=== PATIENT | female | born 1970 ===

== ENCOUNTER → 2020-11-26 10:01 | Outpatient (BNVA) | payer MEDICAID, SELFPAY | PROVIDERS: PCP Internal Medicine Geriatric Medicine; Visit Provider Surgery | DX: K64.4 Residual hemorrhoidal skin tags (principal); K64.8 Other hemorrhoids | CPT/HCPCS: 46600; 99202 ==

== ENCOUNTER 2020-12-25 07:01 | Day surgery (SDC) | payer MEDICAID, SELFPAY ==
[2020-12-18 15:31] VITALS: BMI 42.6
--- NOTE | 2020-12-23 13:32 | HO.ANESPROP2 ---
Documented by User: Ryann Tse 12/23/20 13:33 HPI - Anesthesia Eval Consult details Narrative: 50yo F for EUA & Hemorrhoidectomy, Poss Fistulotomy, Poss Seton Placement PMFSH Active Problems Active Problems: All Active Problems (Updated 12/18/20 @ 15:20 by Alyce Smiley) Anal fistula (Acute) Internal and external hemorrhoids without complication (Acute) Morbid obesity (Acute) Arthritis (Acute) Past Medical History Medical History (Updated 12/18/20 @ 15:20 by Alyce Smiley) Anal fistula Arthritis GERD (gastroesophageal reflux disease) Internal and external hemorrhoids without complication Iron deficiency anemia Morbid obesity Surgical History Surgical History (Updated 12/18/20 @ 15:23 by Alyce Smiley) H/O bariatric surgery History of appendectomy History of cholecystectomy History of esophagogastroduodenoscopy (EGD) History of tonsillectomy Hx of colonoscopy Hx of prior ablation treatment Social History Social History Are you a primary nurse healthcare manager to a significant other at home: No Do you presently have visiting nurse or other home services: No Alcohol intake: current Alcohol intake frequency: holidays/special occasions only Smoking Status: Never smoker Use of substances other than those prescribed or required for medical reasons: No Have you been hit, kicked, punched, or otherwise hurt by someone within the past year? If so, by whom?: No Advance Directives: No Advance Directives Information Provided: No Advance Directives on File: No Recently lost weight without trying: No Meds Allergies Allergy/AdvReac Type Severity Reaction Status Date / Time No Known Allergies Allergy Verified 12/18/20 15:25 Home Medications Medication Instructions Recorded Confirmed Last Taken Type mecobalamin (vitamin B12) 1,000 1,000 mcg SUBLINGUAL BEDTIME 11/26/20 12/18/20 Unknown History mcg disintegrating tablet,sublingual meloxicam 15 mg tablet 15 mg PO DAILY 11/26/20 12/18/20 Unknown History omeprazole 20 mg tablet,delayed 20 mg PO DAILY 11/26/20 12/18/20 Unknown History release ergocalciferol (vitamin D2) 1 cap PO QWEEK 12/18/20 12/18/20 Unknown History Exam Exam Date and Time: December 23, 2020 1332 Height,Weight and Vital Signs: Height 5 ft 2 in Weight 105.687 kg Assessment and Plan Assessment Anesthesia Assessment: Chart Reviewed Documented by User: Venice Larose 12/25/20 08:35 [facility] Past Medical History Medical History (Updated 12/18/20 @ 15:20 by Alyce Smiley) Anal fistula Arthritis GERD (gastroesophageal reflux disease) Internal and external hemorrhoids without complication Iron deficiency anemia Morbid obesity Surgical History Surgical History (Updated 12/18/20 @ 15:23 by Alyce Smiley) H/O bariatric surgery History of appendectomy History of cholecystectomy History of esophagogastroduodenoscopy (EGD) History of tonsillectomy Hx of colonoscopy Hx of prior ablation treatment Social History Social History Are you a primary nurse healthcare manager to a significant other at home: No Do you presently have visiting nurse or other home services: No Alcohol intake: current Alcohol intake frequency: holidays/special occasions only Smoking Status: Never smoker Use of substances other than those prescribed or required for medical reasons: No Have you been hit, kicked, punched, or otherwise hurt by someone within the past year? If so, by whom?: No Advance Directives: No Advance Directives Information Provided: No Advance Directives on File: No Recently lost weight without trying: No Meds Allergies Allergy/AdvReac Type Severity Reaction Status Date / Time No Known Allergies Allergy Verified 12/18/20 15:25 Home Medications Medication Instructions Recorded Confirmed Last Taken Type mecobalamin (vitamin B12) 1,000 1,000 mcg SUBLINGUAL BEDTIME 11/26/20 12/18/20 Unknown History mcg disintegrating tablet,sublingual meloxicam 15 mg tablet 15 mg PO DAILY 11/26/20 12/18/20 Unknown History omeprazole 20 mg tablet,delayed 20 mg PO DAILY 11/26/20 12/18/20 Unknown History release ergocalciferol (vitamin D2) 1 cap PO QWEEK 12/18/20 12/18/20 Unknown History Exam Airway Mallampati Class: II TM Dist: >3cm Neck ROM: Full Loose/Missing/Broken Teeth: No Heart: RRR Lungs: CTA Assessment and Plan Assessment Anesthesia Assessment: Anesthesia Plan Discussed and Chart Reviewed Final Anesthetic Review NPO: Yes ASA Class: III Final Preanesthetic Review: Meds/Allgs Chart Reviewed, Consent Obtained/Reviewed and Anes Risks/Benef Reviewed Patient Risk: Intermediate Procedure Risk: Intermediate Anesthetic Plan Anesthetic Plan: GA Disposition: Standard PACU
[2020-12-25] VITALS (7 sets, daily range): BP systolic 115–150; BP diastolic 55–70; PULSE 53–80; RESP 14–16; TEMP 36.2–36.4; O2SAT 97–100
[2020-12-25] MEDS: Lactated Ringers 1,000 ML 100 ML IVCONT (07:51)
[2020-12-25 08:18] LABS: UPreg QC Valid YES; Urine Pregnancy NEGATIVE (NEGATIVE)
--- NOTE | 2020-12-25 08:45 | MHC.SHP ---
Pre-Procedural Eval Section B Chief Complaint: Internal and external hemorrhoids w/o complication Allergies: Allergies Allergy/AdvReac Type Severity Reaction Status Date / Time No Known Allergies Allergy Verified 12/18/20 15:25 Plan I have reviewed the history and physical and performed a pertinent physical examination on my patient. No changes have occurred unless specified.
--- NOTE | 2020-12-25 09:21 | W.PM.OPN ---
Operative Note Operative Note Date of Service: 12/25/20 Narrative: Preop diagnosis: anal fistula, external hemorrhoids Postop diagnosis: the same Procedure: Exam under anesthesia, fistulotomy, hemorrhoidectomy x1 Surgeon: Max Rocha MD The patient is a 50-year-old female referred to me because of some drainage from her perianal area. She also stated that she had large hemorrhoids that had been bothering her and she wanted this removed. Examination in the office revealed what appeared to be a sinus opening at the perianal area posteriorly just past the anal verge. I did not see any obvious internal fistulous opening. There was some induration on the external sinus opening. She also had what appeared to be a bulky external hemorrhoid on the anterior aspect towards the right. In view of in symptoms she wanted to proceed with exam under anesthesia and I explained to her the technique of possible seton placement or fistulotomy as well as hemorrhoidectomy. I explained the risks including but not limited to bleeding, infections as well as benefits and alternatives and she had given consent. She was brought to the operating room and placed in prone randall-knife position under general anesthesia via endotracheal tube. The buttocks were retracted with wide tape laterally. The perianal area was prepped draped usual sterile fashion. A surgical time-out was done. The patient received Cefotan 2 g IV preoperatively Examination of the anal orifice revealed an induration posteriorly just past the anal verge and a little to the left of the midline. There was also a bulky hemorrhoidal column on the anterior area to the right. This appeared to be external hemorrhoids mostly. Inserted a Marie- Michel retractor and examined the anal canal circumferentially. There were no other lesions seen. There was no fissure. There was note of an external hemorrhoid column on the anterior aspect a little to the right. I was able to visualize what appeared to be an internal sinus fistula radial to the external sinus posteriorly at the level of the anal verge. I was able to pass a very fine probe through the external sinus all the way to the internal sinus without any difficulty. This appeared to be a very superficial fistula and did not seem to involve significant sphincter muscle. I therefore decided to proceed with just fistulotomy instead of a seton. I unroofed this tract by cauterizing the overlying skin and soft tissue. I cauterized the surface of the fistula tract as well. I then proceeded to do hemorrhoidectomy on the external hemorrhoids anteriorly. I applied a Allen grasper on this column to retract this. I applied a [id number] stitch at its pedicle using chromic 3-0 and made an incision around this hemorrhoid column to the perianal skin using a blade 15. I then excised this hemorrhoidal column above the plane of sphincters using scissors. I closed this incision with a running chromic 3-0 stitch. There was note of good hemostasis. I then infiltrated the perianal area with Marcaine 0.5% for postop analgesia. Once hemostasis was reach confirmed, the procedure was completed The patient tolerated the procedure well. There were no complications noted. Initial and final counts of sponges and instruments were correct. Estimated blood loss was about less than 1 cc. The patient was extubated without difficulty and transferred to the recovery room with stable vital signs.
--- NOTE | 2020-12-25 09:27 | PM.OP ---
Brief Operative Note Date of Service: 12/25/20 Pre-op diagnosis: Anal fistula, external hemorrhoids Post-op diagnosis: same Procedure: Exam under anesthesia, fistulotomy, hemorrhoidectomy Surgeon: Max Rocha MD Anesthesia: GETA Estimated blood loss (mL): 1 Pathology: other (Hemorrhoid) Condition: stable Disposition: PACU
== END 2020-12-25 11:23 | disposition home or self-care (01) ==
PROVIDERS: Nurse Practitioner; PCP Internal Medicine Geriatric Medicine; Visit Provider Surgery
PROC: (CPT 46270; principal; 2020-12-25 09:00)
DX: K60.3 Anal fistula (principal); K64.8 Other hemorrhoids; K64.4 Residual hemorrhoidal skin tags; D50.9 Iron deficiency anemia, unspecified; E66.01 Morbid (severe) obesity due to excess calories; Z68.41 Body mass index [BMI] 40.0-44.9, adult; Z79.899 Other long term (current) drug therapy; Z98.84 Bariatric surgery status; Z90.49 Acquired absence of other specified parts of digestive tract
CPT/HCPCS: 46270; 46255; 81025; 88304; J1100; J1170; J2250; J2405; J3010

== ENCOUNTER → 2021-01-07 09:57 | Outpatient (BNVA) | payer MEDICAID, SELFPAY | PROVIDERS: PCP Internal Medicine Geriatric Medicine; Visit Provider Surgery | DX: K60.3 Anal fistula (principal); K64.4 Residual hemorrhoidal skin tags; K64.8 Other hemorrhoids | CPT/HCPCS: 99212 ==

== ENCOUNTER → 2021-02-04 09:54 | Outpatient (BNVA) | payer MEDICAID, SELFPAY | PROVIDERS: PCP Internal Medicine Geriatric Medicine; Referring Provider Internal Medicine Geriatric Medicine; Visit Provider Surgery | DX: Z48.815 Encounter for surgical aftercare following surgery on the digestive system (principal); Z87.19 Personal history of other diseases of the digestive system | CPT/HCPCS: 99212 ==

== ENCOUNTER → 2021-06-04 09:44 | Outpatient (BNVA) | payer MEDICAID, SELFPAY | PROVIDERS: Visit Provider Nurse Practitioner Family | DX: M17.0 Bilateral primary osteoarthritis of knee (principal) | CPT/HCPCS: 99212 ==

== ENCOUNTER 2021-07-15 10:01 | Outpatient (REF) | payer MEDICAID, SELFPAY ==
--- NOTE | ~2021-07-15 | MM_ITS ---
EXAMINATION: MM SCREENING DIGITAL BREAST TOMOSYNTHESIS, BILATERAL CLINICAL INFORMATION: Screening. Asymptomatic. The lifetime risk of breast cancer based on the Tyrer-Cuzick Model is 17.2%. COMPARISON: Mammography: April 16, 2019 and March 03, 2016 TECHNIQUE: Digital breast tomosynthesis is performed in both the craniocaudal and mediolateral oblique views along with computer-aided detection (CAD). Synthesized 2D images are generated from the tomosynthesis. FINDINGS: There are scattered areas of fibroglandular density (ACR BI-RADS breast composition Category b). There are no significant masses, abnormal calcifications, or other abnormalities. MM/MM tomosynthesis screening BI IMPRESSION: There are no significant changes from prior study. ASSESSMENT: BI-RADS 1: Negative RECOMMENDATION: Routine annual mammography screening. This patient's information was entered into a reminder system with a target due date for their next mammogram.
== END 2021-07-15 10:02 | disposition home or self-care (01) ==
LOC: HO.MAMMO 10:01
PROVIDERS: Visit Provider Advanced Practice Midwife
DX: Z12.31 Encounter for screening mammogram for malignant neoplasm of breast (principal)
CPT/HCPCS: 77063; 77067

== ENCOUNTER 2021-07-29 12:15 | Day surgery (SDC) | payer MEDICAID, SELFPAY ==
[2021-07-23 13:58] VITALS: BMI 42.7
--- NOTE | 2021-07-28 09:34 | P.CONAN_ITS ---
Documented by User: Ryann Tse NP 07/28/21 09:35 HPI - Anesthesia Eval Consult details Narrative: 51yo F for Right Genicular Nerve Block Cooled RFA PMFSH Active Problems Active Problems: All Active Problems (Updated 07/23/21 @ 13:59 by Meri Velazquez RN) Bilateral primary osteoarthritis of knee (Acute) Anal fistula (Acute) Internal and external hemorrhoids without complication (Acute) Morbid obesity (Acute) Arthritis (Acute) Past Medical History Medical History (Updated 07/23/21 @ 13:59 by Meri Velazquez RN) Anal fistula Arthritis COVID-19 vaccine series completed GERD (gastroesophageal reflux disease) Internal and external hemorrhoids without complication Iron deficiency anemia Morbid obesity Surgical History Surgical History (Updated 07/22/21 @ 15:05 by Meri Velazquez RN) H/O bariatric surgery History of appendectomy History of cholecystectomy History of esophagogastroduodenoscopy (EGD) History of tonsillectomy Hx of colonoscopy Hx of hemorrhoidectomy Hx of prior ablation treatment Social History Social History Are you a primary urgent care technician to a significant other at home: No Do you presently have visiting nurse or other home services: No Alcohol intake: current Alcohol intake frequency: holidays/special occasions only Patient Tobacco Use Status: Never used Tobacco Use of substances other than those prescribed or required for medical reasons: No Have you been hit, kicked, punched, or otherwise hurt by someone within the past year? If so, by whom?: No Are you DNR?: No Advance Directives: No Advance Directives Information Provided: Yes (informational brochure mailed) Advance Directives on File: No Recently lost weight without trying: No Eating poorly because of decreased appetite: No Nutrition Risks: No Nutritional Risk Meds Allergies Allergy/AdvReac Type Severity Reaction Status Date / Time No Known Allergies Allergy Verified 06/04/21 09:51 Home Medications Medication Instructions Recorded Confirmed Last Taken Type mecobalamin (vitamin B12) 1,000 1,000 mcg SUBLINGUAL BEDTIME 11/26/20 07/23/21 Unknown History mcg disintegrating tablet,sublingual meloxicam 15 mg tablet 15 mg PO DAILY 11/26/20 07/23/21 Unknown History omeprazole 20 mg tablet,delayed 20 mg PO DAILY 11/26/20 07/23/21 Unknown History release ergocalciferol (vitamin D2) 1,250 1 cap PO QWEEK 12/18/20 07/23/21 Unknown History mcg (50,000 unit) capsule Exam Exam Date and Time: July 28, 2021 0934 Height,Weight and Vital Signs: Height 5 ft 2 in Weight 106.141 kg Assessment and Plan Assessment Anesthesia Assessment: Chart Reviewed Documented by User: Harry Guevara 07/29/21 16:25 [facility] Past Medical History Medical History (Updated 07/23/21 @ 13:59 by Meri Velazquez RN) Anal fistula Arthritis COVID-19 vaccine series completed GERD (gastroesophageal reflux disease) Internal and external hemorrhoids without complication Iron deficiency anemia Morbid obesity Family History Family history of problems with anesthesia: No Surgical History Surgical History (Updated 07/22/21 @ 15:05 by Meri Velazquez RN) H/O bariatric surgery History of appendectomy History of cholecystectomy History of esophagogastroduodenoscopy (EGD) History of tonsillectomy Hx of colonoscopy Hx of hemorrhoidectomy Hx of prior ablation treatment History of Problems with Anesthesia: No Social History Social History Are you a primary urgent care technician to a significant other at home: No Do you presently have visiting nurse or other home services: No Alcohol intake: current Alcohol intake frequency: holidays/special occasions only Patient Tobacco Use Status: Never used Tobacco Use of substances other than those prescribed or required for medical reasons: No Have you been hit, kicked, punched, or otherwise hurt by someone within the past year? If so, by whom?: No Are you DNR?: No Advance Directives: No Advance Directives Information Provided: Yes (informational brochure mailed) Advance Directives on File: No Recently lost weight without trying: No Eating poorly because of decreased appetite: No Nutrition Risks: No Nutritional Risk Meds Allergies Allergy/AdvReac Type Severity Reaction Status Date / Time No Known Allergies Allergy Verified 06/04/21 09:51 Home Medications Medication Instructions Recorded Confirmed Last Taken Type mecobalamin (vitamin B12) 1,000 1,000 mcg SUBLINGUAL BEDTIME 11/26/20 07/23/21 Unknown History mcg disintegrating tablet,sublingual meloxicam 15 mg tablet 15 mg PO DAILY 11/26/20 07/23/21 Unknown History omeprazole 20 mg tablet,delayed 20 mg PO DAILY 11/26/20 07/23/21 Unknown History release ergocalciferol (vitamin D2) 1,250 1 cap PO QWEEK 12/18/20 07/23/21 Unknown History mcg (50,000 unit) capsule Exam Airway Mallampati Class: II TM Dist: >3cm Neck ROM: Full Loose/Missing/Broken Teeth: Yes Heart: rrr Lungs: b/lbreath sounds Assessment and Plan Final Anesthetic Review Family History of Problems with Anesthesia: No History of Problems with Anesthesia: No NPO: Yes ASA Class: II Final Preanesthetic Review: Meds/Allgs Chart Reviewed and Anes Risks/Benef Reviewed Patient Risk: Intermediate Procedure Risk: Intermediate Anesthetic Plan Anesthetic Plan: MAC: (with General Aneshesia as a back-up ) Disposition: Standard PACU
--- NOTE | ~2021-07-29 | FL_ITS ---
EXAMINATION: XR FLUOROSCOPY WITH IMAGES CLINICAL INFORMATION: Right genicular nerve block cooled RFA COMPARISON: Radiographs right knee 07/05/2019 TECHNIQUE: Fluoroscopy performed by Dr. Ant Bolden. Fluoroscopy time: 0.1 minutes DAP: 1.13 mGycm2 Images: 2 FINDINGS: There are spinal needles adjacent to the distal femoral shaft, medial and lateral sides, mid depth. There is a spinal needle adjacent to the proximal tibia on medial side mid depth. There are degenerative changes medial knee joint compartment with joint narrowing and mild subchondral sclerosis. Degenerative changes also noted patellofemoral joint. FL/FL guidance in OR IMPRESSION: Fluoroscopy for pain management procedures.
--- NOTE | 2021-07-29 11:19 | MHC.SHP ---
Pre-Procedural Eval Section A Date of Service: 07/29/21 The patient is an INPATIENT: No Changes since office visit: Yes Patient answered all questions The History & Physical has been completed within 30 days and I have reviewed it.: No Section B Chief Complaint: Bilateral Primary Osteoarthritis of Knee Details of Present Illness: as above Relevant Family History (Specify if Yes): No Relevant Social History: None Present Medications: see Short Stay Collaborative assessment Medical History: No relevant PMH History of Previous Operations: No relevant previous surgery Allergies: Allergies Allergy/AdvReac Type Severity Reaction Status Date / Time No Known Allergies Allergy Verified 06/04/21 09:51 Review of Systems Sugical H&P ROS: Negative: Constitution, Cardiovascular, Respiratory, Neurological, Psychiatric, Hem-Onc, Allergic/Immunologic, Gastrointestinal, Genitourinary, Musculoskeletal, Integumentary, Endocrine and Eyes/Ears/Nose/Throat Exam Surgical H&P Exam: Normal: HEENT, Normal: Heart, Normal: Lungs, Normal: Extremities, Normal: Abdomen, Normal: Skin and Normal: Neurological Plan Diagnosis/Plan: Unchanged I have reviewed the history and physical and performed a pertinent physical examination on my patient. No changes have occurred unless specified.
--- NOTE | 2021-07-29 11:36 | W.PM.OPN ---
Operative Note Operative Note Date of Service: 07/29/21 Narrative: ? ?Informed consent was explained to the patient. All questions were explained and answered. The patient was taken inside the operating room. The patient was positioned supine on operating table with her right leg elevated on a gel bin. Time-out was performed delineating correct site, side, the nature of the procedure, patient's allergy, preoperative antibiotic if needed. All operating room staff was participating in OR time-out procedure. C-arm was brought over the operating field and picture of the right knee was demonstrated on the screen. Anterolateral and anteromedial surfaces of the knee were prepped with chloroprep and draped with utility towels. The point of interest were delineated for: FOR: superior lateral genicular nerve as the connection of the metaphysis of the left femur with corresponding diaphysis on the lateral silhouette of the femur distal bone, For superior medial genicular nerve the point of interest was delineated is the connection of metaphysis of left femur with corresponding diaphysis on the medial silhouette on the femoral distal bone. For inferior medial genicular nerve the point of interest was delineated as connection of metaphysis of the proximal tibia on the medial side with corresponding diaphysis of the same bone. The projections of the points of interest on anterior surface of the left knee was injected with small amount of lidocaine 2% 1-to 2 ml. After that 3 radiofrequency cannulas 50 mm long were driven to the point of interest in tunnel vision fashion. When needles gently contacted the bones the position of the C-arm was switched to the lateral view and needles positions were adjusted to assure that the tip of the needle is located at the mid shaft of each of the above described bones. Care was taken to see superimposed condyles of the knee on the lateral view. After that the sharp stylets were removed from each radiofrequency cannula and radiofrequency probes were inserted into the cannula. Care was taking not to dislodge the cannulas from their positions. After that small amount of bupivacaine 0.5% mixed with lidocaine 2% and mixed with trace amount of Kenalog was injected into each needle position. After 60 seconds time interval the energy application for 2 minutes 45 seconds was performed using cooled radiofrequency technique. Upon completion of the cooled radiofrequency application the probes were removed, sterile Band-Aids were applied Upon the completion of the injections the needles were removed sterile dressing was applied. Patient went to PACU where recovered uneventfully.
--- NOTE | 2021-07-29 16:02 | PM.OP ---
Brief Operative Note Date of Service: 07/29/21 Pre-op diagnosis: Right knee osteoarthritis Post-op diagnosis: same Procedure: Radiofrequency ablation of genicular nerves on right knee. Implants: In a Surgeon: Ant Bolden MD Anesthesia: GLMA Was an Returns Supervisor used for this Procedure?: No Estimated blood loss (mL): 1 Pathology: none sent Condition: stable Disposition: PACU
[2021-07-29 16:07] VITALS: BP 167/94; PULSE 74; RESP 12; TEMP 36.2; O2SAT 99
[2021-07-29 16:12] VITALS: BP 124/76; PULSE 59; RESP 16; O2SAT 100
[2021-07-29 16:16] VITALS: BP 139/78; PULSE 52; RESP 16; O2SAT 100
[2021-07-29 16:22] VITALS: BP 136/85; PULSE 54; RESP 16; O2SAT 98
[2021-07-29 16:37] VITALS: BP 159/81; PULSE 55; RESP 16; O2SAT 97
[2021-07-29 16:52] VITALS: BP 169/70; PULSE 52; RESP 18; TEMP 36.9; O2SAT 98
== END 2021-07-29 17:17 | disposition home or self-care (01) ==
PROVIDERS: PCP Internal Medicine Geriatric Medicine; Visit Provider Anesthesiology
PROC: 3E0T3BZ Introduction of Anesthetic Agent into Peripheral Nerves and Plexi, Percutaneous Approach (ICD-10-PCS; CPT 64454; principal; 2021-07-29 14:00)
DX: M17.11 Unilateral primary osteoarthritis, right knee (principal); M25.561 Pain in right knee; G89.29 Other chronic pain; E66.01 Morbid (severe) obesity due to excess calories; Z79.899 Other long term (current) drug therapy; Z68.41 Body mass index [BMI] 40.0-44.9, adult; Z98.84 Bariatric surgery status
CPT/HCPCS: 64624; J1100; J2250; J2405; J3010; J3300; Q9967

== ENCOUNTER → 2021-08-31 17:20 | Outpatient (BNVA) | payer MEDICAID, SELFPAY | PROVIDERS: PCP Internal Medicine Geriatric Medicine; Visit Provider Nurse Practitioner Family | DX: M17.0 Bilateral primary osteoarthritis of knee (principal) | CPT/HCPCS: 99212 ==

== ENCOUNTER 2021-09-09 09:03 | Day surgery (SDC) | payer MEDICAID, SELFPAY ==
--- NOTE | 2021-09-08 09:12 | HO.ANESPROP2 ---
Documented by User: Ryann Tse NP 09/08/21 09:16 HPI - Anesthesia Eval Consult details Narrative: 51yo F for Left Genicular Nerve Block Cooled RFA s/p Right Gen Nerve block 07/2021 with GA-LMA 4 PMFSH Active Problems Active Problems: All Active Problems (Updated 07/23/21 @ 13:59 by Meri Velazquez RN) Bilateral primary osteoarthritis of knee (Acute) Anal fistula (Acute) Internal and external hemorrhoids without complication (Acute) Morbid obesity (Acute) Arthritis (Acute) Past Medical History Medical History Anal fistula Arthritis COVID-19 vaccine series completed GERD (gastroesophageal reflux disease) Internal and external hemorrhoids without complication Iron deficiency anemia Morbid obesity Family History Family history of problems with anesthesia: No Surgical History Surgical History H/O bariatric surgery History of appendectomy History of cholecystectomy History of esophagogastroduodenoscopy (EGD) History of tonsillectomy Hx of colonoscopy Hx of hemorrhoidectomy Hx of prior ablation treatment History of Problems with Anesthesia: No Social History Social History Are you a primary healthcare business analyst to a significant other at home: No Do you presently have visiting nurse or other home services: No Alcohol intake: current Alcohol intake frequency: holidays/special occasions only Patient Tobacco Use Status: Never used Tobacco Use of substances other than those prescribed or required for medical reasons: No Are you DNR?: No Advance Directives: No Advance Directives Information Provided: Yes Meds Allergies Allergy/AdvReac Type Severity Reaction Status Date / Time No Known Allergies Allergy Verified 09/09/21 10:32 Home Medications Medication Instructions Recorded Confirmed Last Taken Type mecobalamin (vitamin B12) 1,000 1,000 mcg SUBLINGUAL BEDTIME 11/26/20 07/23/21 Unknown History mcg disintegrating tablet,sublingual meloxicam 15 mg tablet 15 mg PO DAILY 11/26/20 07/23/21 Unknown History omeprazole 20 mg tablet,delayed 20 mg PO DAILY 11/26/20 07/23/21 Unknown History release ergocalciferol (vitamin D2) 1,250 1 cap PO QWEEK 12/18/20 07/23/21 Unknown History mcg (50,000 unit) capsule Exam Exam Date and Time: September 08, 2021 0912 Assessment and Plan Assessment Anesthesia Assessment: Chart Reviewed Final Anesthetic Review Family History of Problems with Anesthesia: No History of Problems with Anesthesia: No Documented by User: Venice Larose MD 09/09/21 12:13 PMFSH Past Medical History Medical History Anal fistula Arthritis COVID-19 vaccine series completed GERD (gastroesophageal reflux disease) Internal and external hemorrhoids without complication Iron deficiency anemia Morbid obesity Surgical History Surgical History H/O bariatric surgery History of appendectomy History of cholecystectomy History of esophagogastroduodenoscopy (EGD) History of tonsillectomy Hx of colonoscopy Hx of hemorrhoidectomy Hx of prior ablation treatment Social History Social History Are you a primary healthcare business analyst to a significant other at home: No Do you presently have visiting nurse or other home services: No Alcohol intake: current Alcohol intake frequency: holidays/special occasions only Patient Tobacco Use Status: Never used Tobacco Use of substances other than those prescribed or required for medical reasons: No Are you DNR?: No Advance Directives: No Advance Directives Information Provided: Yes Meds Allergies Allergy/AdvReac Type Severity Reaction Status Date / Time No Known Allergies Allergy Verified 09/09/21 10:32 Home Medications Medication Instructions Recorded Confirmed Last Taken Type mecobalamin (vitamin B12) 1,000 1,000 mcg SUBLINGUAL BEDTIME 11/26/20 07/23/21 Unknown History mcg disintegrating tablet,sublingual meloxicam 15 mg tablet 15 mg PO DAILY 11/26/20 07/23/21 Unknown History omeprazole 20 mg tablet,delayed 20 mg PO DAILY 11/26/20 07/23/21 Unknown History release ergocalciferol (vitamin D2) 1,250 1 cap PO QWEEK 12/18/20 07/23/21 Unknown History mcg (50,000 unit) capsule Exam Airway Mallampati Class: II Neck ROM: Full Loose/Missing/Broken Teeth: No Heart: RRR Lungs: CTA Assessment and Plan Final Anesthetic Review NPO: Yes ASA Class: III Final Preanesthetic Review: Meds/Allgs Chart Reviewed, Consent Obtained/Reviewed and Anes Risks/Benef Reviewed Patient Risk: Intermediate Procedure Risk: Low Anesthetic Plan Anesthetic Plan: GA Disposition: Standard PACU
[2021-09-09] VITALS (7 sets, daily range): BP systolic 139–173; BP diastolic 42–81; PULSE 50–64; RESP 16–18; TEMP 36.1–36.6; O2SAT 98–100; BMI 41.7
--- NOTE | ~2021-09-09 | FL_ITS ---
EXAMINATION: XR FLUOROSCOPY WITH IMAGES CLINICAL INFORMATION: Knee pain. Geniculate nerve block. COMPARISON: Routine radiographs 07/05/2019 TECHNIQUE: Fluoroscopy performed by Dr. Ant Bolden. Fluoroscopy time: 0.1 minutes DAP: 1.08 Gycm2 Images: 2 FINDINGS: There are spinal needles adjacent to the distal femoral shaft, medial and lateral sides, mid depth. There is a spinal needle adjacent to the proximal tibia on medial side mid depth. There is narrowing medial knee joint compartment with mild genu varus, similar to prior radiographs. FL/FL guidance in OR IMPRESSION: Fluoroscopy for pain management procedures.
[2021-09-09] MEDS: Lactated Ringers 1,000 ML 100 ML IVCONT (10:58)
--- NOTE | 2021-09-09 11:53 | MHC.SHP ---
Pre-Procedural Eval Section A Date of Service: 09/09/21 Section B Chief Complaint: osteoarthritis of knee Details of Present Illness: osteoarthritis left knee Relevant Family History (Specify if Yes): No Relevant Social History: None Present Medications: see Short Stay Collaborative assessment Medical History: No relevant PMH History of Previous Operations: No relevant previous surgery Allergies: Allergies Allergy/AdvReac Type Severity Reaction Status Date / Time No Known Allergies Allergy Verified 09/09/21 10:32 Review of Systems Sugical H&P ROS: Negative: Cardiovascular, Respiratory, Neurological, Psychiatric, Hem-Onc, Allergic/Immunologic, Gastrointestinal, Genitourinary, Musculoskeletal, Integumentary, Endocrine and Eyes/Ears/Nose/Throat and Yes, Specify: Constitution (morbid obesity) Exam Surgical H&P Exam: Normal: HEENT, Normal: Heart, Normal: Lungs, Normal: Abdomen, Normal: Skin and Normal: Neurological and Significant Findings: Extremities (valgus deformity b/l knees) Plan Diagnosis/Plan: Unchanged I have reviewed the history and physical and performed a pertinent physical examination on my patient. No changes have occurred unless specified.
--- NOTE | 2021-09-09 11:56 | PM.OP ---
Brief Operative Note Date of Service: 09/09/21 Pre-op diagnosis: knee osteoarthritis Post-op diagnosis: same Procedure: RFA left knee genicular nerves Implants: none Surgeon: Ant Bolden MD Anesthesia: GLMA Was an Educational Administration Teacher used for this Procedure?: No Estimated blood loss (mL): 3 Pathology: none sent Condition: stable Disposition: PACU
--- NOTE | 2021-09-09 12:30 | P.OP_ITS ---
Operative Note Operative Note Date of Service: 09/09/21 Narrative: After obtaining informed consents and risks and benefits explained to the patient, the patient came to the operating room, she was positioned supine on the operating table. [employer] monitors were applied and patient was induced with general anesthesia with LMA. Time-out was performed delineating the name and date of with the patient, nature of the procedure, site and side of the procedure:, Risk of fire, DVT prophylaxis needs. no antibiotics will required preop for these procedure. the left knee of the patient was positioned elevated on the gel bin. It was prepped with duraprep in the anterior surfase s of the knee, anterior surfaces of the hip, anterior surfaces of the upper osl, As well as corresponding medial and lateral surfaces of the leg. C-arm was brought to the operating field and picture of left knee was demonstrated on the screen.The point of interest were Delineated as superior lateral genicular nerve as the connection of the metaphysis of the left femur with corresponding diaphysis on the lateral silhouette of the femur distal bone, For superior medial genicular nerve the point of interest was delineated is the connection of metaphysis of left femur with corresponding diaphysis on the medial silhouette on the femoral distal bone. For inferior medial genicular nerve the point of interest was delineated as connection of metaphysis of the proximal tibia on the medial side with corresponding diaphysis of the same bone. The projections of the points of interest on anterior surface of the left knee was injected with small amount of lidocaine 2% 1-to 2 ml. After that 3 50 cm long radiofrequency cannulas were driven to were the point of interest in tunnel vision fashion. When needles gently contacted the bones the position of the C- arm was switched to the lateral view and needles positions were adjusted to assure that the tip of the needle is located at the mid shaft of each of the above described bones while the condyles superimposed one over another. After that injection of the mixture of lidocaine 2% in bupivacaine 0.5% with trace amount of Kenalog was performed in all 3 side ports of the radiofrequency cannulas. We waited 60 seconds after that application energy was performed for 2 minutes 45 seconds. After that the cannulas were removed and sterile Band- Aids were applied. The patient tolerated procedure well she was taking outside of the operating room to recovery room where she recovered uneventfully. She went home without immediate complications.
== END 2021-09-09 14:03 | disposition home or self-care (01) ==
PROVIDERS: PCP Internal Medicine Geriatric Medicine; Visit Provider Anesthesiology
PROC: (CPT 64624; principal; 2021-09-09 11:40)
DX: M17.12 Unilateral primary osteoarthritis, left knee (principal); R26.2 Difficulty in walking, not elsewhere classified; M21.062 Valgus deformity, not elsewhere classified, left knee; M21.061 Valgus deformity, not elsewhere classified, right knee; M25.562 Pain in left knee; M25.561 Pain in right knee; E66.01 Morbid (severe) obesity due to excess calories; D50.9 Iron deficiency anemia, unspecified
CPT/HCPCS: 64624; J3010; J3300

== ENCOUNTER → 2021-11-05 10:02 | Outpatient (BNVA) | payer MEDICAID, SELFPAY | PROVIDERS: PCP Internal Medicine Geriatric Medicine; Visit Provider Nurse Practitioner Family ==

== ENCOUNTER → 2022-03-03 08:31 | Outpatient (BNVA) | payer SELFPAY | PROVIDERS: PCP Internal Medicine Geriatric Medicine; Visit Provider Internal Medicine | DX: Z02.79 Encounter for issue of other medical certificate (principal) ==

== ENCOUNTER 2022-03-25 06:11 | Outpatient (REF) | payer MEDICAID, SELFPAY | END 2022-03-25 06:12 | disposition home or self-care (01) | LOC: HO.RADIR 06:11 | PROVIDERS: Visit Provider Internal Medicine | DX: M17.0 Bilateral primary osteoarthritis of knee (principal); M25.561 Pain in right knee; G89.29 Other chronic pain | CPT/HCPCS: 64447; 64450 ==

== ENCOUNTER 2022-07-19 08:27 | Outpatient (REF) | payer MEDICAID, SELFPAY ==
--- NOTE | ~2022-07-19 | XR_ITS ---
EXAMINATION: XR KNEE, RIGHT XR KNEE, LEFT CLINICAL INFORMATION: Bilateral osteoarthritis COMPARISON: Bilateral knee radiographs 07/05/2019 TECHNIQUE: The right knee is imaged in 4 views. The left knee is imaged in 5 views. There are a total of 9 views. FINDINGS: Right: There is prominent joint narrowing medial compartment on the weightbearing AP view. No erosive change or chondrocalcinosis. No lateralization or tilting patella. Probable small to moderate suprapatellar effusion. No fracture or dislocation or destructive process. Similar findings noted on prior exam 2019. Left: There is prominent joint narrowing medial compartment on the weightbearing AP view. No erosive change or chondrocalcinosis. No lateralization or tilting patella. No definite effusion. No fracture or dislocation or destructive process. Similar findings noted on prior exam 2019. XR/XR knee RT 4V IMPRESSION: -Prominent bilateral narrowing medial knee joint compartments. -Small to moderate right suprapatellar effusion. No definite left effusion. -No erosive changes or chondrocalcinosis. No destructive process. -No lateralization or tilting patella.
--- NOTE | ~2022-07-19 | XR_ITS ---
EXAMINATION: XR KNEE, RIGHT XR KNEE, LEFT CLINICAL INFORMATION: Bilateral osteoarthritis COMPARISON: Bilateral knee radiographs 07/05/2019 TECHNIQUE: The right knee is imaged in 4 views. The left knee is imaged in 5 views. There are a total of 9 views. FINDINGS: Right: There is prominent joint narrowing medial compartment on the weightbearing AP view. No erosive change or chondrocalcinosis. No lateralization or tilting patella. Probable small to moderate suprapatellar effusion. No fracture or dislocation or destructive process. Similar findings noted on prior exam 2019. Left: There is prominent joint narrowing medial compartment on the weightbearing AP view. No erosive change or chondrocalcinosis. No lateralization or tilting patella. No definite effusion. No fracture or dislocation or destructive process. Similar findings noted on prior exam 2019. XR/XR knee LT 4V IMPRESSION: -Prominent bilateral narrowing medial knee joint compartments. -Small to moderate right suprapatellar effusion. No definite left effusion. -No erosive changes or chondrocalcinosis. No destructive process. -No lateralization or tilting patella.
== END 2022-07-19 08:28 | disposition home or self-care (01) ==
LOC: HO.XRAY 08:27
PROVIDERS: PCP Internal Medicine Geriatric Medicine; Visit Provider Internal Medicine Geriatric Medicine
DX: M17.0 Bilateral primary osteoarthritis of knee (principal)
CPT/HCPCS: 73564

== ENCOUNTER 2022-08-09 | Outpatient (REF) | payer MEDICAID, SELFPAY ==
--- NOTE | ~2022-08-09 | XR_ITS ---
EXAMINATION: XR KNEE AP STANDING CLINICAL INFORMATION: Pain COMPARISON: Previous x-rays July 2022 TECHNIQUE: AP bilateral standing view of the knees was obtained. FINDINGS: There is medial femoral tibial joint space narrowing bilaterally. Joint spaces are otherwise normal. No fracture or dislocation. Soft tissues are normal. XR/XR knee standing BI IMPRESSION: Bilateral medial femoral tibial joint space narrowing.
== END 2022-08-09 00:01 ==
LOC: HO.HOSX
PROVIDERS: Visit Provider Physician Assistant
DX: M17.0 Bilateral primary osteoarthritis of knee (principal)
CPT/HCPCS: 73565; 99212

== ENCOUNTER 2022-08-10 10:18 | Outpatient (REF) | payer MEDICAID, SELFPAY ==
--- NOTE | ~2022-08-10 | MM_ITS ---
EXAMINATION: MM SCREENING DIGITAL BREAST TOMOSYNTHESIS, BILATERAL CLINICAL INFORMATION: Screening. Asymptomatic. The lifetime risk of breast cancer based on the Tyrer-Cuzick Model is 11%. COMPARISON: Mammography: 07/15/2021, 04/17/2019, 03/03/2016 TECHNIQUE: Digital breast tomosynthesis is performed in both the craniocaudal and mediolateral oblique views along with computer-aided detection (CAD). Synthesized 2D images are generated from the tomosynthesis. FINDINGS: There are scattered areas of fibroglandular density (ACR BI-RADS breast composition Category b). There are no significant masses, abnormal calcifications, or other abnormalities. Some additional vascular calcifications are present anterior right breast as well as dermal calcifications posterior medial breasts. No developing density or interval architectural abnormality. The axilla and skin contours are unremarkable. No significant changes. MM/MM tomosynthesis screening BI IMPRESSION: No mammographic evidence of malignancy. ASSESSMENT: BI-RADS 2: Benign RECOMMENDATION: Routine annual mammography screening. This patient's information was entered into a reminder system with a target due date for their next mammogram.
== END 2022-08-10 10:19 | disposition home or self-care (01) ==
LOC: HO.MAMMO 10:18
PROVIDERS: PCP Internal Medicine Geriatric Medicine; Visit Provider Internal Medicine Geriatric Medicine
DX: Z12.31 Encounter for screening mammogram for malignant neoplasm of breast (principal)
CPT/HCPCS: 77063; 77067

== ENCOUNTER → 2022-08-18 09:54 | Outpatient (BNVA) | payer MEDICAID, SELFPAY | PROVIDERS: PCP Internal Medicine Geriatric Medicine; Visit Provider Orthopaedic Surgery | DX: M17.0 Bilateral primary osteoarthritis of knee (principal); M25.561 Pain in right knee; E66.01 Morbid (severe) obesity due to excess calories; D50.9 Iron deficiency anemia, unspecified; Z68.41 Body mass index [BMI] 40.0-44.9, adult; Z98.84 Bariatric surgery status | CPT/HCPCS: 99212 ==

== ENCOUNTER → 2023-03-02 08:01 | Outpatient (BNVA) | payer SELFPAY | PROVIDERS: PCP Internal Medicine Geriatric Medicine; Visit Provider Physician Assistant Medical | DX: Z02.79 Encounter for issue of other medical certificate (principal) ==

== ENCOUNTER 2023-06-02 09:41 | Outpatient (REF) | payer OTHER, SELFPAY ==
[2023-06-02 11:19] LABS: MANUAL DIFF FLAG NO
[2023-06-02 11:39] LABS: Basophils Percent Auto 0.5 % (0-2); Eosinophils Absolute Auto 0.2 X10*3/uL (0.0-0.4); Eosinophils Percent Auto 1.8 % (0-4); Hemoglobin 12.8 g/dl (12.0-16.0); Imm Gran Abs Auto 0.03 X10*3/uL (0.00-0.03); Imm Gran Pct Auto 0.4 % (0.0-0.4); Lymphocytes Absolute Auto 1.4 X10*3/uL (1.2-4.9); Lymphocytes Percent Auto 16.9 % (20-40); Mean Corpuscular HGB Conc 32.8 g/dl (31.0-35.0); Mean Corpuscular Hemoglobin 29.4 pg (27.0-33.0); Mean Corpuscular Volume 89.4 fL (80.0-98.0); Mean Platelet Volume 11.1 fL (9.4-12.3); Monocytes Absolute Auto 0.7 X10*3/uL (0.1-1.2); Neutrophils Percent Auto 72.4 % (45-73); Platelet Count 205 X10*3/uL (160-400); Red Blood Count 4.36 X10*6/uL (4.20-5.50); Red Cell Distribution Width 12.4 % (11.0-16.0); White Blood Count 8.3 X10*3/uL (4.8-10.8)
[2023-06-02 11:46] LABS: Estimated Average Glucose 105 mg/dL; Hemoglobin A1c % 5.3 % (<6.0)
[2023-06-02 12:47] LABS: Folate 15.3 ng/mL (> or = 4.0); Vitamin B12 439 pg/mL (200-900)
[2023-06-02 12:48] LABS: Alanine Aminotransferase 18 U/L (0-31); Alkaline Phosphatase 69 U/L (39-117); Anion Gap 11 (12-20); Aspartate Amino Transferase 19 U/L (5-31); Bilirubin Total 0.3 mg/dL (0.0-1.0); Blood Urea Nitrogen 13 mg/dL (9-16); Calcium 9.4 mg/dL (8.4-10.2); Carbon Dioxide 27 mmol/L (22-29); Chloride 105 mmol/L (96-108); Estimated Glomerular Filt Rate > 60; Glucose Random 88 mg/dL (60-115); Potassium 4.6 mmol/L (3.3-5.1); Sodium 138 mmol/L (135-145); TSH reflex Free T4 0.72 uIU/mL (0.32-4.0); Total Protein 7.2 g/dL (6.5-8.0)
== END 2023-06-02 09:42 | disposition home or self-care (01) ==
LOC: HO.HHCL 09:41
PROVIDERS: Visit Provider Student in an Organized Health Care Education/Training Program
DX: R20.0 Anesthesia of skin (principal)
CPT/HCPCS: 36415; 80053; 82607; 82746; 83036; 84443; 85025

== ENCOUNTER 2023-11-04 08:44 | Outpatient (REF) | payer OTHER, SELFPAY | END 2023-11-04 08:45 | disposition home or self-care (01) | LOC: HO.MAMMO 08:44 | PROVIDERS: PCP Internal Medicine Geriatric Medicine; Visit Provider Internal Medicine Geriatric Medicine | DX: Z12.31 Encounter for screening mammogram for malignant neoplasm of breast (principal) | CPT/HCPCS: 77063; 77067 ==

== ENCOUNTER → 2023-11-04 09:00 | Outpatient (BNV) | payer OTHER, SELFPAY | PROVIDERS: PCP Internal Medicine Geriatric Medicine; Visit Provider Radiology Diagnostic Radiology | DX: Z12.31 Encounter for screening mammogram for malignant neoplasm of breast (principal) | CPT/HCPCS: 77063; 77067 ==

== ENCOUNTER 2023-12-13 11:15 | Outpatient (REF) | payer OTHER, SELFPAY ==
[2023-12-13 13:55] LABS: Anion Gap 12 (12-20); Blood Urea Nitrogen 14 mg/dL (9-16); Calcium 9.7 mg/dL (8.4-10.2); Carbon Dioxide 27 mmol/L (22-29); Chloride 102 mmol/L (96-108); Estimated Glomerular Filt Rate > 60; Glucose Random 89 mg/dL (60-115); Potassium 4.2 mmol/L (3.3-5.1); Sodium 137 mmol/L (135-145)
[2023-12-13 15:30] LABS: CT PCR NOT DETECTED (Not Detect.); NG PCR NOT DETECTED (Not Detect.)
[2023-12-14 06:55] LABS: HIV AB/AG Nonreactive (Nonreactive); HIV Num 1 0.07 S/CO (0.00-0.99); Hepatitis B Surface Antigen Negative (Negative); ~HepC Num1 0.26 S/CO (0.00-0.79); ~Hepatitis C Antibody Nonreactive (Nonreactive)
[2023-12-14 14:03] LABS: RPR Rapid Plasma Reagin NON-REACTIVE (NON-REACTIVE)
== END 2023-12-13 11:16 | disposition home or self-care (01) ==
LOC: HO.HHCL 11:15
PROVIDERS: Visit Provider Internal Medicine Geriatric Medicine
DX: I10 Essential (primary) hypertension (principal); Z11.3 Encounter for screening for infections with a predominantly sexual mode of transmission
CPT/HCPCS: 0353U; 36415; 80048; 86592; 86803; 87340; 87389

== ENCOUNTER → 2024-02-28 08:15 | Outpatient (BNVA) | payer SELFPAY | PROVIDERS: PCP Internal Medicine Geriatric Medicine; Visit Provider Registered Nurse | DX: Z02.79 Encounter for issue of other medical certificate (principal) ==

== ENCOUNTER 2024-03-29 10:59 | Outpatient (REF) | payer SELFPAY ==
[2024-03-29 20:33] LABS: Anion Gap 15 (12-20); Blood Urea Nitrogen 14 mg/dL (9-16); Calcium 9.6 mg/dL (8.4-10.2); Carbon Dioxide 24 mmol/L (22-29); Chloride 106 mmol/L (96-108); Estimated Glomerular Filt Rate > 60; Glucose Random 90 mg/dL (60-115); Potassium 4.5 mmol/L (3.3-5.1); Sodium 140 mmol/L (135-145)
[2024-03-29 20:51] LABS: TSH reflex Free T4 0.66 uIU/mL (0.32-4.0)
== END 2024-03-29 11:00 | disposition home or self-care (01) ==
LOC: HO.HMGCLDS 10:59
PROVIDERS: Visit Provider Internal Medicine Geriatric Medicine
DX: I10 Essential (primary) hypertension (principal); E04.1 Nontoxic single thyroid nodule
CPT/HCPCS: 36415; 80048; 84443

== ENCOUNTER 2024-04-08 15:40 | Outpatient (REF) | payer OTHER, SELFPAY ==
--- NOTE | ~2024-04-08 | US_ITS ---
EXAMINATION: US THYROID CLINICAL INFORMATION: Thyroid nodules. COMPARISON: None available. TECHNIQUE: Linear transducer grayscale and color Doppler examination with attention to the region of the thyroid. FINDINGS: SIZE: Measurements of the thyroid lobes and nodules are given in sagittal, anteroposterior and transverse dimensions respectively. Right Thyroid Lobe: 4.2 x 1.8 x 1.8 cm, volume 6.8 mL. Parenchyma: The gland echotexture is homogeneous. Thyroid vascularity is normal. Left Thyroid Lobe: 5.0 x 2.1 x 2.0 cm, volume 11.0 mL. Parenchyma: The gland echotexture is heterogeneous. Thyroid vascularity is normal. Isthmus: 0.6 cm in maximum AP dimension. Estimated total number of nodules greater than or equal to 1 cm: 1. 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 Location: Right lower pole. Size: 0.9 x 0.5 x 0.5 cm, volume 0.12 mL. Nodule characteristics: Composition: Solid (2). Echogenicity: Hyperechoic (1). Shape: Not taller than wide (0). Margins: Smooth (0). Echogenic Foci: None (0). ACR TI-RADS total points: 3 ACR TI-RADS category: 3 2. Location: Right midpole. Size: 0.3 x 0.3 x 0.3 cm, volume 0.1 mL. Nodule characteristics: Composition: Cystic(0). ACR TI-RADS total points: 0 ACR TI-RADS category: 1 3. Location: Left midpole. Size: 0.7 x 0.4 x 0.6 cm, volume 0.9 mL. Nodule characteristics: Composition: Cannot be determined (2). Echogenicity: Hypoechoic (2). Shape: Not taller than wide (0). Margins: Smooth (0). Echogenic Foci: Peripheral calcifications (2). ACR TI-RADS total points: 6 ACR TI-RADS category: 4 4. Location: Left mid pole/lower pole. Size: 2.6 x 2.0 x 2.2 cm, volume 5.7 mL. Nodule characteristics: Composition: Solid (2). Echogenicity: Isoechoic (1). Shape: Not taller than wide (0). Margins: Smooth (0). Echogenic Foci: Macrocalcifications (1). ACR TI-RADS total points: 4 ACR TI-RADS category: 4 NODES: No lymphadenopathy is seen in the tissue surrounding the thyroid gland. US/US thyroid IMPRESSION: A 2.6 cm TR for left thyroid nodule meets criteria for tissue sampling. No other thyroid nodule meets criteria for follow-up. ACR TI-RADS RECOMMENDATION REFERENCE: Ultrasound-guided fine-needle aspiration, followup ultrasound, no further follow up. * TR1 (0 point) and TR2 (2 points): No FNA or follow up. * TR3 (3 points): FNA if more than or equal to 2.5 cm in maximum dimension, followup ultrasound in 1, 3 and 5 years if 1.5 to 2.4 cm in maximum dimension. * TR4 (4-6 points): FNA if more than or equal to 1.5 cm in maximum dimension, followup ultrasound in 1, 2, 3 and 5 years if 1 to 1.4 cm in maximum dimension. * TR5 (more than or equal to 7 points): FNA if more than or equal to 1 cm in maximum dimension, followup ultrasound every year for 5 years if 0.5 to 0.9 cm in maximum dimension. * TR3, TR4 or TR5 nodules that are below the size threshold for followup receive no follow up.
== END 2024-04-08 15:41 | disposition home or self-care (01) ==
LOC: HO.US 15:40
PROVIDERS: PCP Internal Medicine Geriatric Medicine; Visit Provider Internal Medicine Geriatric Medicine
DX: E04.1 Nontoxic single thyroid nodule (principal)
CPT/HCPCS: 76536

== ENCOUNTER 2024-04-25 17:39 | Outpatient (REF) | payer OTHER, SELFPAY ==
[2024-04-29 20:13] LABS: HPV mRNA E6/E7 Not Detected (Not Detected)
== END 2024-04-25 17:40 | disposition home or self-care (01) ==
LOC: HO.HHCLNP 17:39
PROVIDERS: Visit Provider Advanced Practice Midwife
DX: Z12.4 Encounter for screening for malignant neoplasm of cervix (principal)
CPT/HCPCS: 36415; 87624; 88175

== ENCOUNTER 2024-05-14 12:41 | Outpatient (REF) | payer OTHER, SELFPAY ==
--- NOTE | ~2024-05-14 | US_ITS ---
ULTRASOUND-GUIDED THYROID NODULE FINE NEEDLE ASPIRATION INDICATION: Left lobe thyroid nodule PROCEDURE: Informed consent was obtained from the patient prior to the procedure. During this process, the procedure and potential alternatives were explained, along with the intended outcome and benefits. The risks of the procedure, as well as the risks of not doing the procedure, were discussed. The patient was given the opportunity to ask questions regarding the procedure and appeared competent to make medical decisions. A signed consent form which documents this discussion was placed in the medical record. A timeout was performed in the room. The patient was placed in a supine position with the neck extended. The left side of the neck and chest was prepped and draped in routine sterile fashion. 1% lidocaine was used as anesthetic. Under real-time ultrasound guidance, a 25-gauge needle was placed into the nodule and aspiration was performed. A total of 3 aspirations were performed. The specimens were placed in CytoLyt and and the Affirma bottle. Postprocedure images showed no hematoma. A Band-Aid was applied to the access site. The patient tolerated the procedure well with no immediate complications. Permanent ultrasound images were archived to the procedure. US/US biopsy thyroid IMPRESSION: Left thyroid nodule fine-needle aspiration This procedure was performed by Ramy Montoya PA-C, and directly supervised by Dr. Baez. Electronically signed by: Jeremiah Baez MD 05/14/2024 03:41 PM EDT
[2024-05-14] MEDS: Lidocaine HCl 1 % MPF 5 ML VIAL SUBCUT (13:46)
== END 2024-05-14 12:42 | disposition home or self-care (01) ==
LOC: HO.US 12:41
PROVIDERS: PCP Internal Medicine Geriatric Medicine; Visit Provider Internal Medicine Geriatric Medicine
DX: E04.1 Nontoxic single thyroid nodule (principal)
CPT/HCPCS: 10005; 88112; 88305

== ENCOUNTER → 2024-05-14 12:44 | Outpatient (BNV) | payer OTHER, SELFPAY | PROVIDERS: PCP Internal Medicine Geriatric Medicine; Visit Provider Radiology Diagnostic Radiology | DX: E04.1 Nontoxic single thyroid nodule (principal) | CPT/HCPCS: 10005 ==

== ENCOUNTER 2024-06-04 10:06 | Outpatient (REF) | payer OTHER, SELFPAY ==
[2024-06-04 11:46] LABS: Anion Gap 11 (12-20); Blood Urea Nitrogen 17 mg/dL (9-16); Calcium 9.5 mg/dL (8.4-10.2); Carbon Dioxide 28 mmol/L (22-29); Chloride 101 mmol/L (96-108); Estimated Glomerular Filt Rate > 60; Glucose Random 101 mg/dL (60-115); Potassium 4.3 mmol/L (3.3-5.1); Sodium 136 mmol/L (135-145)
== END 2024-06-04 10:07 | disposition home or self-care (01) ==
LOC: HO.HHCL 10:06
PROVIDERS: Visit Provider Internal Medicine Geriatric Medicine
DX: I10 Essential (primary) hypertension (principal)
CPT/HCPCS: 36415; 80048

== ENCOUNTER 2024-06-06 09:43 | Outpatient (AMB) | payer OTHER, SELFPAY ==
--- NOTE | 2024-06-06 09:52 | A.OFFVIS_ITS ---
Vital Signs 3 06/06/24 09:54 Height 5 ft 2 in Weight 245 lb 9.519 oz BMI 44.9 BP 128/84 Blood Pressure Location Lt brachial Position Sitting Pulse 70 Pulse Source Pulse Oximeter Intake Visit Reasons: Thyroid nodule/CONFIRMED Intake Note: New patient present today for Thyroid nodule office visit. 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 Otherwise medical history significant for HTN, gastric bypass 2008 . Patient describes MNG was diagnosed 10 years ago. had a biopsy not sure which side and was told it was benign. This was 10 years ago. She is seeing PCP for obesity and planning to start GLP 1 agonist so PCP reordered thyroid US. Thyroid ultrasound March 2024 showed , I reviewed the images myself which showed multiple bilateral nodules with 2 subcentimeter nodules in the right lobe. On left lower lobe dominant nodule measuring 2.6 cm in the maximum dimension was noted which is solid, isoechoic, with macrocalcifications. This is TR 4 category. Per [facility] this is at least an intermediate suspicion nodule with 10-20% chance of malignancy, which meet criteria for FNA greater than 1 cm in size. Another subcentimeter left mid lobe nodule also noted. FNA of the left lower lobe 2.6 cm TR 4 nodule done May 2024 was nondiagnostic. Patient currently denies heat or cold intolerance, diarrhea or constipation, hair loss, palpitation, anxiety, weight changes, mood changes, low energy, changes in appearance of eyes or vision changes, tremors, increased diaphoresis or dry skin. ?Postmenopausal, Endometrial ablation in 2018 or so . Patient denies any difficulty swallowing, pain on swallowing or voice changes or difficulty breathing. Patient denies any history of childhood neck radiation. Denies having ever used lithium, amiodarone or biotin supplements. Patient denies any family history of thyroid cancer or thyroid disease. Mother: had thyroid surgery but not cancer Maternal 1st cousin female has thyroid cancer, not sure which type. Review of systems Constitutional: no fevers, chills or weight loss HEENT: no changes in vision Cardiac: No chest pain, discomfort or palpitations. Pulmonary: No SOB GI:No abdominal pain, no nausea or vomiting, no anorexia, no blood in stool : no burning micturition, dysuria or increase in urinary frequency Physical exam General: sitting comfortably in no acute distress HEENT: normocephalic/atraumatic, moist oral mucosa Neck: supple, symmetrical, palpable 2 cm left thyroid nodule , no dorsocervical or supraclavicular fat pads Cardiac: normal heart sounds Pulm: normal breath sounds B/L, no added breath sounds Abd: not distended, no tenderness Extremities: no edema, no signs of myxedema Neuro: AAO x3, Speech: normal, no facial droop, moving all 4 extremities [facility] Medical History (Updated 06/06/24 @ 10:03 by Jossy Humphrey MD) Multinodular goiter COVID-19 vaccine series completed GERD (gastroesophageal reflux disease) Iron deficiency anemia Anal fistula Internal and external hemorrhoids without complication Morbid obesity Arthritis Surgical History Hx of hemorrhoidectomy History of esophagogastroduodenoscopy (EGD) Hx of colonoscopy Hx of prior ablation treatment History of appendectomy History of cholecystectomy History of tonsillectomy H/O bariatric surgery Family History Mother Diabetes Family history of thyroid problem High blood pressure Glaucoma Father Diabetes High cholesterol Social History Are you a primary congregational care pastor to a significant other at home: No Do you presently have visiting nurse or other home services: No Alcohol intake: current Alcohol intake frequency: holidays/special occasions only Patient Tobacco Use Status: Never used Tobacco Physical Exam Vital Signs: BMI result Body Mass Index 44.9 Results Reviewed Results Reviewed: Laboratory Tests 06/02/23 03/29/24 09:45 11:03 TSH 0.72 0.66 EXAMINATION: US THYROID March 2024 I reviewed the images myself which showed multiple bilateral nodules with 2 subcentimeter nodules in the right lobe. On left lower lobe dominant nodule measuring 2.6 cm in the maximum dimension was noted which is solid, isoechoic, with macrocalcifications. This is TR 4 category. Per [facility] this is at least an intermediate suspicion nodule with 10-20% chance of malignancy, which meet criteria for FNA greater than 1 cm in size. Another subcentimeter left mid lobe nodule also noted. CLINICAL INFORMATION: Thyroid nodules. COMPARISON: None available. TECHNIQUE: Linear transducer grayscale and color Doppler examination with attention to the region of the thyroid. FINDINGS: SIZE: Measurements of the thyroid lobes and nodules are given in sagittal, anteroposterior and transverse dimensions respectively. Right Thyroid Lobe: 4.2 x 1.8 x 1.8 cm, volume 6.8 mL. Parenchyma: The gland echotexture is homogeneous. Thyroid vascularity is normal. Left Thyroid Lobe: 5.0 x 2.1 x 2.0 cm, volume 11.0 mL. Parenchyma: The gland echotexture is heterogeneous. Thyroid vascularity is normal. Isthmus: 0.6 cm in maximum AP dimension. Estimated total number of nodules greater than or equal to 1 cm: 1. Digital Marketing Assistant nodules are described as follows: 1. Location: Right lower pole. Size: 0.9 x 0.5 x 0.5 cm, volume 0.12 mL. Nodule characteristics: Composition: Solid (2). Echogenicity: Hyperechoic (1). Shape: Not taller than wide (0). Margins: Smooth (0). Echogenic Foci: None (0). ACR TI-RADS total points: 3 ACR TI-RADS category: 3 2. Location: Right midpole. Size: 0.3 x 0.3 x 0.3 cm, volume 0.1 mL. Nodule characteristics: Composition: Cystic(0). ACR TI-RADS total points: 0 ACR TI-RADS category: 1 3. Location: Left midpole. Size: 0.7 x 0.4 x 0.6 cm, volume 0.9 mL. Nodule characteristics: Composition: Cannot be determined (2). Echogenicity: Hypoechoic (2). Shape: Not taller than wide (0). Margins: Smooth (0). Echogenic Foci: Peripheral calcifications (2). ACR TI-RADS total points: 6 ACR TI-RADS category: 4 4. Location: Left mid pole/lower pole. Size: 2.6 x 2.0 x 2.2 cm, volume 5.7 mL. Nodule characteristics: Composition: Solid (2). Echogenicity: Isoechoic (1). Shape: Not taller than wide (0). Margins: Smooth (0). Echogenic Foci: Macrocalcifications (1). ACR TI-RADS total points: 4 ACR TI-RADS category: 4 NODES: No lymphadenopathy is seen in the tissue surrounding the thyroid gland. US/US thyroid IMPRESSION: A 2.6 cm TR for left thyroid nodule meets criteria for tissue sampling. No other thyroid nodule meets criteria for follow-up. Assessment & Plan Assessment & Plan (1) Multinodular goiter: Code(s): E04.2 - Nontoxic multinodular goiter Category: Medical Plan: Patient with family history of thyroid cancer in a cousin, with no personal history of head or neck radiation, coming in today for multinodular goiter. She says she has a apparently have the nodules for the past 10 years when she was initially diagnosed and underwent a biopsy of 1 of the nodules, not sure what side. Reportedly result was benign. I reviewed the images myself of her thyroid ultrasound done March 2024 which showed multiple bilateral nodules with 2 subcentimeter nodules in the right lobe. On left lower lobe dominant nodule measuring 2.6 cm in the maximum dimension was noted which is solid, isoechoic, with macrocalcifications. This is TR 4 category. Per [facility] this is at least an intermediate suspicion nodule with 10-20% chance of malignancy, which meet criteria for FNA greater than 1 cm in size. Another subcentimeter left mid lobe nodule also noted. FNA of the left lower lobe 2.6 cm TR 4 nodule done May 2024 was nondiagnostic. Patient has no compressive symptoms. She is biochemically euthyroid. I explained that it is common to have thyroid nodules. About 95% of the time these nodules are benign. However if the nodule is > 1 cm in size or suspicious on ultrasound then a fine need aspiration biopsy is recommended. We discussed that a FNAB involves 4-5 passes with a small gauge needle and material obtained is sent off for cytology.If the cytopathology is benign then the nodule will be followed annually with repeat ultrasounds. However if it is suspicious or malignant, we will need to discuss further management. Indeterminate cytology can be further investigated with repeat FNA, genetic testing or empiric lobectomy. Malignant cytology is managed with either lobectomy or total thyroidectomy. We discussed briefly that thyroid cancer is, in most patients, an indolent disease that does not affect mortality. I also explained to her that there is a 5-15% chance of getting a nondiagnostic result which is what happened in her case. Doing a subsequent biopsy on the same nodule yields a diagnostic result 60-80% of the time. We will arrange for repeat FNA of the left lower lobe 2.6 cm nodule and patient will follow up with me in clinic thereafter for results and further decision making. We will give this at least 3 months gap from her prior biopsy to allow any inflammation to heal. Patient is planning to start GLP 1 agonist therapy with her primary care physician for obesity, I have asked her to clarify with her cousin what type of thyroid cancer she had. GLP 1 agonist have been seen to cause medullary thyroid cancer in rodents, hence are not prescribed to patients with family history of medullary thyroid cancer. However if her cousin had the more common types of thyroid cancer like papillary or follicular, it would be okay for her to start GLP 1 agonist therapy. Plan: -repeat FNA biopsy of the left lower lobe 2.6 cm thyroid nodule in September 2024 -follow up with me 1-2 weeks after biopsy to discuss results Plan I spent 45 minutes in reviewing the record, seeing the patient and documenting in the medical record. Orders: Orders 2 US biopsy thyroid 09/18/24 E04.2 - Nontoxic multinodular goiter Patient Instructions: Please call your cousin and ask if she had medullary thyroid cancer or papillary thyroid cancer or follicular type Medullary is the one where you cannot take the injections We will book you for a biopsy in September for your left lower thyroid nodule And an appointment 1-2 weeks after with me in clinic for follow up to discuss results Coding Level of Care Code New Pt Level 4 (19949) Diagnoses Multinodular goiter E04.2 Time Spent (min) 45
[2024-06-06 09:54] VITALS: BP 128/84; PULSE 70; BMI 44.9
== END 2024-06-06 10:39 | disposition home or self-care (01) ==
PROVIDERS: PCP Internal Medicine Geriatric Medicine; Visit Provider Student in an Organized Health Care Education/Training Program
DX: E04.2 Nontoxic multinodular goiter (principal)
CPT/HCPCS: 99204

== ENCOUNTER → 2024-06-06 09:43 | Outpatient (BNVA) | payer OTHER, SELFPAY | PROVIDERS: PCP Internal Medicine Geriatric Medicine; Visit Provider Student in an Organized Health Care Education/Training Program | DX: E04.2 Nontoxic multinodular goiter (principal) | CPT/HCPCS: 99202 ==

== ENCOUNTER 2024-09-18 09:33 | Outpatient (REF) | payer OTHER, SELFPAY ==
--- NOTE | 2024-09-18 10:24 | PM.PROC ---
Brief Operative Note Date of procedure: 09/18/24 Pre-op diagnosis: left inferior 2.6 cm thyroid nodule FNA biopsy Procedure: THYROID FINE NEEDLE ASPIRATION PROCEDURE NOTE ? PROCEDURE PERFORMED: Ultrasound-guided FNA of thyroid nodule ? OPERATORS: Dr. Jossy Humphrey ? INDICATION: left inferior 2.6 cm thyroid nodule FNA biopsy; FNA performed to assess for malignancy ? DESCRIPTION OF PROCEDURE: The indications for FNA (to assess for malignancy) were reviewed with the patient in detail. Potential complications (e.g., bleeding, infection, damage to local structures, absence of clear diagnosis after FNA) were reviewed. Alternatives to FNA including conservative observation or surgery were described. The patient understood and agreed to proceed. This was documented by the signing of the written informed consent form. A time-out was performed to confirm the patient's identity and the site of planned FNA. The nodule of interest was identified using ultrasound (14 MHz linear array probe). The site of FNA was then draped in the usual fashion and carefully cleaned and prepared using alcohol swabs. The skin at the previously-identified site of needle insertion was iced and sprayed with numbing spray. Under ultrasound guidance, 4__ passes were performed using a 1.5-inch, 25-gauge needle, and sample was obtained via capillary action. The needle tip was clearly visualized to be within the nodule at the time of sampling for 4__ of __4 passes The patient tolerated the procedure well. There were no immediate complications. A small adhesive bandage was applied, and the patient was advised to take acetaminophen (rather than NSAIDs) for any discomfort and to report any signs of inflammation/infection or marked swelling. IMPRESSION: Technically successful ultrasound-guided fine needle aspiration of left inferior 2.6 cm thyroid nodule. PLAN: The patient was advised that I will provide follow-up regarding the cytology result and any subsequent plans. Jossy Humphrey MD Endocrinology Attending Condition: stable Disposition: same day
== END 2024-09-18 09:34 | disposition home or self-care (01) ==
LOC: HO.US 09:33
PROVIDERS: PCP Internal Medicine Geriatric Medicine; Visit Provider Student in an Organized Health Care Education/Training Program
DX: E04.2 Nontoxic multinodular goiter (principal); R89.6 Abnormal cytological findings in specimens from other organs, systems and tissues
CPT/HCPCS: 10005; 88173; 88305

== ENCOUNTER → 2024-09-18 09:33 | Outpatient (BNV) | payer OTHER, SELFPAY | PROVIDERS: PCP Internal Medicine Geriatric Medicine; Visit Provider Student in an Organized Health Care Education/Training Program | DX: E04.2 Nontoxic multinodular goiter (principal) | CPT/HCPCS: 10005 ==

== ENCOUNTER 2024-10-03 09:40 | Outpatient (AMB) | payer OTHER, SELFPAY ==
--- NOTE | 2024-10-03 09:41 | MHC.OFFVIS ---
Vital Signs 10/03/24 09:42 Height 5 ft 2 in Weight 233 lb 0.458 oz BMI 42.6 BP 126/76 Blood Pressure Location Lt brachial Position Sitting Pulse 68 Pulse Source Pulse Oximeter Intake Visit Reasons: f/u biopsy Intake Note: Patient present today for biopsy results. 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 Otherwise medical history significant for HTN, gastric bypass 2008 . HPI from prior visit Patient describes MNG was diagnosed 10 years ago. had a biopsy not sure which side and was told it was benign. This was 10 years ago. She is seeing PCP for obesity and planning to start GLP 1 agonist so PCP reordered thyroid US. Thyroid ultrasound March 2024 showed , I reviewed the images myself which showed multiple bilateral nodules with 2 subcentimeter nodules in the right lobe. On left lower lobe dominant nodule measuring 2.6 cm in the maximum dimension was noted which is solid, isoechoic, with macrocalcifications. This is TR 4 category. Another subcentimeter left mid lobe nodule also noted. FNA of the left lower lobe 2.6 cm TR 4 nodule done May 2024 was nondiagnostic. Patient currently denies heat or cold intolerance, diarrhea or constipation, hair loss, palpitation, anxiety, weight changes, mood changes, low energy, changes in appearance of eyes or vision changes, tremors, increased diaphoresis or dry skin. ?Postmenopausal, Endometrial ablation in 2019 or so . Patient denies any difficulty swallowing, pain on swallowing or voice changes or difficulty breathing. Patient denies any history of childhood neck radiation. Denies having ever used lithium, amiodarone or biotin supplements. Patient denies any family history of thyroid cancer or thyroid disease. Mother: had thyroid surgery but not cancer Maternal 1st cousin female has thyroid cancer, not sure which type. Interval history 09/18/2024 underwent repeat FNA of the left lower lobe 2.6 cm TR 4 nodule, with AUS cytology (Woolrich category 3), with architectural atypia. Afirma pending. Physical exam General: sitting comfortably in no acute distress HEENT: normocephalic/atraumatic, moist oral mucosa Neck: supple, symmetrical, palpable 2 cm left thyroid nodule , no dorsocervical or supraclavicular fat pads Cardiac: normal heart sounds Pulm: normal breath sounds B/L, no added breath sounds Abd: not distended, no tenderness Extremities: no edema, no signs of myxedema Neuro: AAO x3, Speech: normal, no facial droop, moving all 4 extremities 06/02/23 03/29/24 09:45 11:03 TSH 0.72 0.66 EXAMINATION: US THYROID March 2024 CLINICAL INFORMATION: Thyroid nodules. COMPARISON: None available. TECHNIQUE: Linear transducer grayscale and color Doppler examination with attention to the region of the thyroid. FINDINGS: SIZE: Measurements of the thyroid lobes and nodules are given in sagittal, anteroposterior and transverse dimensions respectively. Right Thyroid Lobe: 4.2 x 1.8 x 1.8 cm, volume 6.8 mL. Parenchyma: The gland echotexture is homogeneous. Thyroid vascularity is normal. Left Thyroid Lobe: 5.0 x 2.1 x 2.0 cm, volume 11.0 mL. Parenchyma: The gland echotexture is heterogeneous. Thyroid vascularity is normal. Isthmus: 0.6 cm in maximum AP dimension. Estimated total number of nodules greater than or equal to 1 cm: 1. Audio Narrator nodules are described as follows: 1. Location: Right lower pole. Size: 0.9 x 0.5 x 0.5 cm, volume 0.12 mL. Nodule characteristics: Composition: Solid (2). Echogenicity: Hyperechoic (1). Shape: Not taller than wide (0). Margins: Smooth (0). Echogenic Foci: None (0). ACR TI-RADS total points: 3 ACR TI-RADS category: 3 2. Location: Right midpole. Size: 0.3 x 0.3 x 0.3 cm, volume 0.1 mL. Nodule characteristics: Composition: Cystic(0). ACR TI-RADS total points: 0 ACR TI-RADS category: 1 3. Location: Left midpole. Size: 0.7 x 0.4 x 0.6 cm, volume 0.9 mL. Nodule characteristics: Composition: Cannot be determined (2). Echogenicity: Hypoechoic (2). Shape: Not taller than wide (0). Margins: Smooth (0). Echogenic Foci: Peripheral calcifications (2). ACR TI-RADS total points: 6 ACR TI-RADS category: 4 4. Location: Left mid pole/lower pole. Size: 2.6 x 2.0 x 2.2 cm, volume 5.7 mL. Nodule characteristics: Composition: Solid (2). Echogenicity: Isoechoic (1). Shape: Not taller than wide (0). Margins: Smooth (0). Echogenic Foci: Macrocalcifications (1). ACR TI-RADS total points: 4 ACR TI-RADS category: 4 NODES: No lymphadenopathy is seen in the tissue surrounding the thyroid gland. US/US thyroid IMPRESSION: A 2.6 cm TR for left thyroid nodule meets criteria for tissue sampling. No other thyroid nodule meets criteria for follow-up. [facility] Medical History (Updated 06/06/24 @ 10:03 by Jossy Humphrey MD) Multinodular goiter COVID-19 vaccine series completed GERD (gastroesophageal reflux disease) Iron deficiency anemia Anal fistula Internal and external hemorrhoids without complication Morbid obesity Arthritis Surgical History Hx of hemorrhoidectomy History of esophagogastroduodenoscopy (EGD) Hx of colonoscopy Hx of prior ablation treatment History of appendectomy History of cholecystectomy History of tonsillectomy H/O bariatric surgery Family History Mother Diabetes Family history of thyroid problem High blood pressure Glaucoma Father Diabetes High cholesterol Social History Are you a primary post acute care nurse to a significant other at home: No Do you presently have visiting nurse or other home services: No Alcohol intake: current Alcohol intake frequency: holidays/special occasions only Patient Tobacco Use Status: Never used Tobacco Assessment & Plan Assessment & Plan (1) Multinodular goiter: Code(s): E04.2 - Nontoxic multinodular goiter Category: Medical Plan: Patient with family history of thyroid cancer in a cousin, with no personal history of head or neck radiation, coming in today for multinodular goiter. She says she has a apparently have the nodules for the past 10 years when she was initially diagnosed and underwent a biopsy of 1 of the nodules, not sure what side. Reportedly result was benign. I reviewed the images myself of her thyroid ultrasound done March 2024 which showed multiple bilateral nodules with 2 subcentimeter nodules in the right lobe. On left lower lobe dominant nodule measuring 2.6 cm in the maximum dimension was noted which is solid, isoechoic, with macrocalcifications. This is TR 4 category. FNA of the left lower lobe 2.6 cm TR 4 nodule done May 2024 was nondiagnostic. Patient has no compressive symptoms. She is biochemically euthyroid. 09/18/2024 underwent repeat FNA of the left lower lobe 2.6 cm TR 4 nodule, with AUS cytology (Woolrich category 3), with architectural atypia. Afirma pending. I explained to the patient that AUS results mean there is a 6-18% chance of malignancy. Plan: -follow up in 4 weeks to discuss Afirma testing, if Afirma comes back benign, I will cancel her follow up appointment and give her a follow up in 1 year with a thyroid ultrasound done prior to follow up. Plan See above Coding Level of Care Code Est Pt Level 3 (44520) Diagnoses Multinodular goiter E04.2
[2024-10-03 09:42] VITALS: BP 126/76; PULSE 68; BMI 42.6
== END 2024-10-03 09:59 | disposition home or self-care (01) ==
PROVIDERS: PCP Internal Medicine Geriatric Medicine; Visit Provider Student in an Organized Health Care Education/Training Program
DX: E04.2 Nontoxic multinodular goiter (principal)
CPT/HCPCS: 99213

== ENCOUNTER → 2024-10-03 09:40 | Outpatient (BNVA) | payer OTHER, SELFPAY | PROVIDERS: PCP Internal Medicine Geriatric Medicine; Visit Provider Student in an Organized Health Care Education/Training Program | DX: E04.2 Nontoxic multinodular goiter (principal) | CPT/HCPCS: 99212 ==

== ENCOUNTER 2025-02-25 08:42 | Outpatient (REF) | payer OTHER, SELFPAY ==
--- OUTSIDE RECORDS SUMMARY | 2025-02-25 09:06 | XMS_ITS | Encounter Summary ---
Author Organization [employer] Address [address] [place] [address] Care Team Providers Care Outpatient Clerk Name Role Phone Name, Keith GERMAN Primary Care Provider [phone] Reason for Visit * Reason Onset Date Comments may recalls 02/24/2025 Encounter Details Date Type Department Care Team ([facility] st Contact Info) Description 02/24/2025 Telephone [facility] [address] [place] [address] Jesse Mxa MA may recalls Social History Tobacco Use Types Packs/Day Years Used Date Smoking Tobacco: Never Passive Smoke Exposure: Never Smokeless Tobacco: Never Alcohol Use Standard Drinks/Week Comments Yes 0 (1 standard drink = 0.6 oz pur e alcohol) socially Depression Answer Date Recorded Patient Health Questionnaire-9 Score 0 02/14/2025 Patient Health Questionnaire-9 Score 0 02/14/2025 Last PHQ-9: Questionnaire Data Not on file 0 02/14/2025 Housing Stability Answer Date Recorded What is your housing situation today? I have dillon pappas 02/14/[address] you li ve. Do you have problems with any of the following? None of the above 02/14/2025 Food Insecurity Answer Date Recorded Within the past 12 months, y ou worried that your food would run out before you got money to buy more: Never True 02/14/2025 Within the past 12 months,th e food you bought just didn't last and you didn't have enough money to get more: Never True 02/2025 Transportation Answer Date Recorded In the past 12 months, has l ack of transportation kept you from medical appts, meetings, work or from getting things needed for daily living? No 02/14/2025 Utilities Answer Date Recorded In the past 12 months, has t he electric, gas, oil or water company threatened to shut off services in your home? No 02/14/2025 Depression Answer Date Recorded Patient Health Questionnaire-2 Score 0 02/14/2025 Internet Access Answer Date Recorded Internet Access Q1 Yes 02/14/2025 Internet Access Q2 Not on file 02/14/2025 Comments No Sex and Gender Information Value Date Recorded Sex Assigned at Female 07/11/2022 10:18 AM EDT Legal Sex Female 10:18 AM EDT Gender Identity Female 07/11/2022 10:18 AM EDT Sexual Orientation Lesbian 01/10/2025 2: 17 PM EDT documented as of this encounter Miscellaneous Notes * Telephone Encounter - Jesse Max MA - 02/24/2025 2:23 PM EDT Telephone call to patient to schedule the following recall: Visit type: Follow up Appointment notes: HTN Patient agree to appointment on 06/03/25 at 10;45 AM with Name. Pt is requesting information on what's going on with Wegovy 2.4 MG/0.75ML solution auto-injector , pt ask if you could call and update with information documented in this encounter Plan of Treatment Upcoming Encounters Date Type Department Care Team (Late st Contact Info) Description 06/03/2025 10:45 AM EDT Office Visit [facility] [address] [place] [address] NameKeith MD [address] [place] [address] documented as of this encounter Visit Diagnoses Not on filedocumented in this encounter Additional Health Concerns Assessment Noted Time PHQ-9 Depression Total Score: 0 02/15/20 25 11:16 AM EDT documented as of this encounter Care Teams Outpatient Clerk Relationship Specialty Start Date End Date NameKeith MD [address] [place] [address] PCP - General Family Medicine 03/03/16 documented as of this encounter
[2025-02-25 11:46] LABS: MANUAL DIFF FLAG NO
[2025-02-25 11:55] LABS: Basophils Absolute Auto 0.1 X10*3/uL (0.0-0.2); Basophils Percent Auto 0.9 % (0-2); Eosinophils Absolute Auto 0.3 X10*3/uL (0.0-0.4); Eosinophils Percent Auto 4.5 % (0-4); Hematocrit 38.6 % (37.0-47.0); Hemoglobin 12.6 g/dl (12.0-16.0); Imm Gran Abs Auto 0.02 X10*3/uL (0.00-0.03); Imm Gran Pct Auto 0.3 % (0.0-0.4); Lymphocytes Absolute Auto 1.4 X10*3/uL (1.2-4.9); Lymphocytes Percent Auto 21.4 % (20-40); Mean Corpuscular HGB Conc 32.6 g/dl (31.0-35.0); Mean Corpuscular Volume 91.9 fL (80.0-98.0); Monocytes Absolute Auto 0.6 X10*3/uL (0.1-1.2); Neutrophils Absolute Auto 4.3 x10*3/uL (2.0-8.3); Neutrophils Percent Auto 63.9 % (45-73); Platelet Count 210 X10*3/uL (160-400); Red Cell Distribution Width 13.5 % (11.0-16.0); White Blood Count 6.7 X10*3/uL (4.8-10.8)
[2025-02-25 12:05] LABS: Alanine Aminotransferase 21 U/L (0-31); Alkaline Phosphatase 82 U/L (39-117); Anion Gap 9 (12-20); Aspartate Amino Transferase 26 U/L (5-31); Bilirubin Total 0.5 mg/dL (0.0-1.0); Blood Urea Nitrogen 14 mg/dL (9-16); Calcium 9.3 mg/dL (8.4-10.2); Carbon Dioxide 30 mmol/L (22-29); Chloride 104 mmol/L (96-108); Cholesterol 200 mg/dL (<200); Estimated Glomerular Filt Rate > 60; Glucose Random 97 mg/dL (60-115); HDL Cholesterol 63 mg/dL (>40); LDL Cholesterol Calculated 111 mg/dL (<100); Potassium 3.8 mmol/L (3.3-5.1); Sodium 139 mmol/L (135-145); Total Protein 7.3 g/dL (6.5-8.0); Triglycerides 132 mg/dL (<150)
== END 2025-02-25 08:43 | disposition home or self-care (01) ==
LOC: HO.HHCL 08:42
PROVIDERS: PCP Internal Medicine Geriatric Medicine; Visit Provider Internal Medicine Geriatric Medicine
DX: Z98.84 Bariatric surgery status (principal); E66.01 Morbid (severe) obesity due to excess calories
CPT/HCPCS: 36415; 80053; 80061; 85025

== ENCOUNTER → 2025-02-28 08:45 | Outpatient (BNVA) | payer SELFPAY | PROVIDERS: PCP Internal Medicine Geriatric Medicine; Visit Provider Physician Assistant | DX: Z02.79 Encounter for issue of other medical certificate (principal) ==

== ENCOUNTER 2025-07-15 10:35 | Outpatient (REF) | payer OTHER, SELFPAY ==
--- NOTE | ~2025-07-15 | XR_ITS ---
EXAMINATION: XR KNEE, RIGHT CLINICAL INFORMATION: PAIN COMPARISON: August 09, 2022. TECHNIQUE: AP lateral and swimmer's projection of the right knee. FINDINGS: Joint space narrowing involving mostly the medial compartment with sclerosis along the articular surfaces. There is small marginal osteophyte formation and the lateral tibial plateau. No acute cortical disruption or malalignment. Small suprapatellar bursa joint effusion. No lytic or blastic lesions. XR/XR knee RT 3V IMPRESSION: Tricompartmental osteoarthrosis/osteoarthritis involving mostly the medial compartment, moderate to severe worsened since prior examination. Small suprapatellar bursa joint effusion.. Electronically signed by: Pepe Shane MD 07/15/2025 11:04 AM [facility]
--- NOTE | ~2025-07-15 | US_ITS ---
EXAMINATION: US TRIPLEX LOWER EXTREMITY, RIGHT CLINICAL INFORMATION: Swelling and pain. COMPARISON: None available. TECHNIQUE: Color-flow triplex imaging with spectral analysis and compression Doppler were performed on the right lower extremity. FINDINGS: Respiratory variation, normal compression and augmented flow are noted throughout the right lower extremity. The visualized common femoral vein, superficial femoral vein, profunda femoral vein, popliteal vein and midcalf peroneal and posterior tibial venous segments show no evidence of deep venous thrombosis. There is no Chow's cyst. US/US venous duplex LE RT IMPRESSION: No evidence of deep venous thrombosis involving the right lower extremity. Electronically signed by: Venice Urena MD 07/15/2025 11:25 AM EST
--- OUTSIDE RECORDS SUMMARY | 2025-07-15 09:20 | XMS_ITS | Encounter Summary ---
Author Organization [employer] Address [address] [facility] 7t [place] [address] Care Team Providers Care Wood Inspector Name Role Phone Name, Keith GERMAN Primary Care Provider Reason for Referral * Imaging (STAT) - Authorized Specialty Diagnoses / Procedures Referred By Contac t Referred To Contact Cardiology Diagnoses Pain of right lower extremity Procedures Vascular US lower extremity venous duplex right Andrey Thayer MD [address] [place] [address] Phone: tel: fax: [address] Phone: tel: fax: Referral ID Status Reason Start Date Expiration Date Visits Requested Visits Authorized [id number] Authorized Perform Procedure 07/15/2025 07/15/2026 1 1 Encounter Details Date Type Department Care Team (Late st Contact Info) Description 07/15/2025 9:20 AM EST Office Visit [facility] [address] [place] [address] Andrey Thayer MD [address] [place], [place] [phone] Pain of right lower extremity (Primary Dx) Social History Tobacco Use Types Packs/Day Years [...] PM EDT documented as of this encounter Last Filed Vital Signs Vital Sign Reading Time Taken Comments Blood Pressure 129/75 07/15/2025 9:21 AM EST Pulse 71 07/15/2025 9:21 AM EST Temperature 36.7 C (98 F) 07/15/2025 9:21 AM EST Respiratory Rate 19 07/15/2025 9:21 AM EST Oxygen Saturation 100% 07/15/2025 9:21 AM EST Inhaled Oxygen Concentration - - Weight 98.5 kg (217 lb 4 oz) 07/15/2025 9:21 AM EST Height 157.5 cm (5' 2 ) 07/15/2025 9:21 AM EST Body Mass Index 39.74 07/15/2025 9:21 AM EST documented in this encounter Progress Notes * Andrey Thayer MD - 07/15/2025 9:20 AM EST Subjective Patient ID: Eleni Price is a 55 y.o. female. HPI I need a knee replacement on both knees due to arthritis, but the right knee, thigh, and leg became painful 2 weeks ago . 2 weeks ago she injected Zepbound in right thigh, and 2 days later she developed pain and swelling sensation in right thigh and leg, usually when she is bearing weight or flexing right knee. No fever, chills, rash, redness, n/v, weakness or numbness. Meloxicam, lidocaine patches are not helping. 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 LMP=years ago. H/o uterine ablation. Lives with mother and cousin. Never smoke. Patient Active Problem List Diagnosis Date Noted History of bariatric surgery 02/14/2025 Polymorphic light eruption 02/14/2025 Hypertension 12/13/2023 Benign paroxysmal positional vertigo 09/21/2023 History of obstructive sleep apnea 06/22/2023 Periodontal disease 05/01/2023 Dental calculus 05/01/2023 Localized gingival recession 05/01/2023 Primary osteoarthritis of both knees 07/04/2017 Heartburn 03/03/2016 Morbid obesity (CMS/HCC) ([facility]) 03/03/2016 Thyroid nodule 03/03/2016 The following portions of the chart were reviewed this encounter and updated as appropriate: Tobacco Allergies Meds Problems Med Hx Surg Hx Fam Hx Review of Systems Constitutional: Negative for fever. Respiratory: Negative for shortness of breath. Cardiovascular: Negative for chest pain. Gastrointestinal: Negative for abdominal pain. Musculoskeletal: Positive for arthralgias and myalgias. Skin: Negative for rash. Neurological: Negative for headaches. Objective Physical Exam Constitutional: Appearance: Normal appearance. HENT: Nose: Nose normal. Eyes: Conjunctiva/sclera: Conjunctivae normal. Pupils: Pupils are equal, round, and reactive to light. Cardiovascular: Rate and Rhythm: Normal rate and regular rhythm. Pulses: Dorsalis pedis pulses are 2+ on the right side. Heart sounds: No murmur heard. Pulmonary: Effort: Pulmonary effort is normal. Breath sounds: Normal breath sounds. Musculoskeletal: General: Normal range of motion. Cervical back: No tenderness. Comments: Right knee: Anterior tenderness, pain on flexion with full range of motion. No appreciable joint effusion or instability. No tenderness to palpation or erythema over the right thigh and right lower leg where the patient has pain. Skin: Findings: No rash. Neurological: Mental Status: She is alert. Gait: Gait is intact. Psychiatric: Mood and Affect: Mood normal. Behavior: Behavior normal. Procedures Assessment/Plan Diagnoses and all orders for this visit: Pain of right lower extremity Stat venous Doppler ultrasound of the right lower extremity ordered to rule out DVT. X-ray of the right knee also ordered. Will call patient with results. Refilled meloxicam, prescribed tizanidine to use at night as needed pain. If venous Doppler ultrasound is negative, will refer back to [facility]. Return to clinic if not improving - Vascular US lower extremity venous duplex right; Future - XR Knee 3 Views Right; Future Other orders - tiZANidine (Zanaflex) 2 MG tablet; Take 1 tablet (2 mg) by mouth if needed in the morning and at bedtime for muscle spasms. May cause drowsiness. Do not drive after using. - meloxicam (Mobic) 15 MG tablet; take 1 tablet by oral route every day as needed for knee pain documented in this encounter Plan of Treatment Upcoming Encounters Date Type Department Care Team (Late st Contact Info) Description 08/27/2025 10:30 AM EST Office Visit [facility] [address] [place] [address] Name, MD Keith [address] [place] [address] documented as of this encounter Procedures Procedure Name Priority Date/Time Associated Diagnosis Comments XR KNEE 3 VIEWS RIGHT Routine 07/15/2025 10:57 AM EST Pain of right lower extremity documented in this encounter Results * XR Knee 3 Views Right (07/15/2025 10:57 AM EST) Anatomical Region Laterality Modality Lower Extremities, Knee Right [facility] Imaging 07/15/2025 10:5 7 AM EST Narrative 07/15/2025 11:08 AM EST [address] [address] XRay Report Signed Patient: Eleni Shearer MR#: [id number] : 1970 Acct:[id number] Age/Sex: 55 / F ADM Date: 07/15/25 Loc: HO.US Attending Dr: Andrey Thayer MD Ordering Physician: ANDREY THAYER MD Date of Service: 07/15/25 Procedure(s): XR knee RT 3V Accession Number(s): [id number] cc: ANDREY THAYER MD; Name,Keith GERMAN Reason for Exam: PAIN EXAMINATION: XR KNEE, RIGHT CLINICAL INFORMATION: PAIN COMPARISON: August 09, 2022. TECHNIQUE: AP lateral and swimmer's projection of the right knee. FINDINGS: Joint space narrowing involving mostly the medial compartment with sclerosis along the articular surfaces. There is small marginal osteophyte formation and the lateral tibial plateau. No acute cortical disruption or malalignment. Small suprapatellar bursa joint effusion. No lytic or blastic lesions. XR/XR knee RT 3V IMPRESSION: Tricompartmental osteoarthrosis/osteoarthritis involving mostly the medial compartment, moderate to severe worsened since prior examination. Small suprapatellar bursa joint effusion.. Electronically signed by: Pepe Shane MD 07/15/2025 11:04 AM EST Dictated By: Pepe Aparicio MD Signed By: <Electronically signed by Pepe Magaña MD in OV> 07/15/25 1104 DD/ 1057 TD/TT: 07/15/25 1100 Sewing Inspector: Procedure Note Donotuseinterpreter, Image - 07/15/[address] [address] XRay Report Signed Patient: Stephen ShearerR#: [id number] : 1970Acct:[id number] Age/Sex: 55 / FADM Date: 07/15/25 Loc: HO.US Attending Dr: Andrey Thayer MD Ordering Physician: ANDREY THAYER MD Date of Service: 07/15/25 Procedure(s): XR knee RT 3V Accession Number(s): [id number] cc: ANDREY THAYER MD; Name,Keith GERMAN Reason for Exam: PAIN EXAMINATION: XR KNEE, RIGHT CLINICAL INFORMATION: PAIN COMPARISON: August 09, 2022. TECHNIQUE: AP lateral and swimmer's projection of the right knee. FINDINGS: Joint space narrowing involving mostly the medial compartment with sclerosis along the articular surfaces. There is small marginal osteophyte formation and the lateral tibial plateau. No acute cortical disruption or malalignment. Small suprapatellar bursa joint effusion. No lytic or blastic lesions. XR/XR knee RT 3V IMPRESSION: Tricompartmental osteoarthrosis/osteoarthritis involving mostly the medial compartment, moderate to severe worsened since prior examination. Small suprapatellar bursa joint effusion.. Electronically signed by: Pepe Shane MD 07/15/2025 11:04 AM EST Dictated By: Pepe Aparicio MD Signed By: <Electronically signed by Pepe Magaña MDin OV> 07/15/25 1104 DD/ 1057 TD/TT: 07/15/25 1100 Sewing Inspector: Andrey Thayer MD IMG XR PROCEDURES Final Result documented in this encounter Visit Diagnoses Diagnosis Pain of right lower extremity- Primary documented in this encounter Additional Health Concerns Assessment Noted Time PHQ-9 Depression Total Score: 0 02/15/20 11:16 AM EDT documented as of this encounter Care Teams Wood Inspector Relationship Specialty Start Date End Date Name, MD Keith [address] [place] [address] PCP - General Family Medicine 03/03/16 documented as of this encounter
--- OUTSIDE RECORDS SUMMARY | 2025-07-15 12:31 | XMS_ITS | Encounter Summary ---
Author Organization [employer] Address [address] [facility] 7t [place] [address] Care Team Providers Care Lifeline Representatives Name Role Phone Name, Keith GERMAN Primary Care Provider [phone] Reason for Visit * Reason Onset Date Comments Nurse Triage 07/10/2025 Encounter Details Date Type Department Care Team ([facility] st Contact Info) Description 07/10/2025 Telephone [facility] [address] [place], [place] [phone] Name, MD Keith [address] [place] [address] Nurse Triage Social History Tobacco Use Types Packs/Day Years [...] encounter Miscellaneous Notes * Telephone Encounter - Melanie Wolf RN - 07/10/2025 10:11 AM EDT Tc to pt to triage for c/o of leg pain. Pt reports it started after they gave themselves the zepbound injection in the right thigh last week. Pt reports they felt soreness which was new for them. Pt reports theyis when the pain worsens. Pt denies of the pain radiating anywhere else in their body. Today pt denies chest pain, shortness of breath, headaches, nausea, vomiting and diarrhea. Pt reportsthe pain does not disrupt their normal activities through the day. Pt advised by development writer to come in the clinic for an appt at the clinic either at the [facility] or team. Pt declined at this time due to working all day. Electric Motor Mechanic reminded pt the the [facility] is opened on Saturdays from 9-1pm and it's best for themto be evaluated first before a provider prescribes them anything. Pt advised if the pain because sosevere that they're not able to do their daily activities then they should go to the ED to be evaluated. ED precautions reviewed and pt agrees with plan. Protocol Used: Leg Pain (Adult) Protocol-Based Disposition: See in Office or Video Visit within 2 Weeks Video visit offer not recorded Positive Triage Questions: * Mild pain (e.g., does not interfere with normal activities) and present > 7 days * Leg pain * All higher-acuity triage questions were negative Care Advice Discussed: * Reasons To Call Back * Use a Cold Pack for Pain * Rest * Reasons To Call Back - Severe pain lasts more than 2 hours after pain medicine - Moderate pain (interferes with normal activities, limping) lasts over 3 days - Mild pain lasts over 7 days - You become worse * Telephone Encounter - Eloy Long - 07/10/2025 8:28 AM EDT Symptom: Leg Pain - Not From Injury Outcome: Schedule an urgent appointment (within 1 hour) or talk to a nurse or provider soon Reason: Severe pain now The caller accepted this outcome. Contact pt at [phone] (guyanese) documented in this encounter Plan of Treatment Upcoming Encounters Date Type Department Care Team (Late st Contact Info) Description 08/27/2025 10:30 AM EST Office Visit [facility] [address] [place] [phone] Name, MD Keith [address] [place] [address] documented as of this encounter Visit Diagnoses Not on filedocumented in this encounter Additional Health Concerns Assessment Noted Time PHQ-9 Depression Total Score: 0 02/15/20 25 11:16 AM EDT documented as of this encounter Care Teams Lifeline Representatives Relationship Specialty Start Date End Date NameKeith MD [address] [place] [address] PCP - General Family Medicine 03/03/16 documented as of this encounter
--- OUTSIDE RECORDS SUMMARY | 2025-07-15 12:31 | XMS_ITS | Encounter Summary ---
Author Organization [employer] Address [address] [facility] 7t [place] [address] Care Team Providers Care Black Mill Operator Name Role Phone Name, Keith GERMAN Primary Care Provider [phone] Encounter Details Date Type Department Care Team (Latest Contact Info) Description 07/15/2025 Travel Social History Tobacco Use Types Packs/Day Years [...] PM EDT documented as of this encounter Plan of Treatment Upcoming Encounters Date Type Department Care Team (Late st Contact Info) Description 08/27/2025 10:30 AM EST Office Visit [facility] [address] [place] [address] Name, MD Keith [address] [place] [address] documented as of this encounter Visit Diagnoses Not on filedocumented in this encounter Additional Health Concerns Assessment Noted Time PHQ-9 Depression Total Score: 0 02/15/20 25 11:16 AM EDT documented as of this encounter Care Teams Black Mill Operator Relationship Specialty Start Date End Date Name, MD Keith [address] [place] [address] PCP - General Family Medicine 03/03/16 documented as of this encounter
--- OUTSIDE RECORDS SUMMARY | 2025-07-15 12:31 | XMS_ITS | Encounter Summary ---
Author Organization [employer] Address [address] [facility] 7t [place] [address] Care Team Providers Care Training Personnel Supervisor Name Role Phone Name, Keith GERMAN Primary Care Provider [phone] Encounter Details Date Type Department Care Team ([facility] st Contact Info) Description 07/15/2025 Telephone [facility] [address] [place], [place] [phone] Andrey Serna MD [address] [place] [address] Social History Tobacco Use Types Packs/Day Years [...] Description 08/27/2025 10:30 AM EST Office Visit [facility] [address] [place] [address] Name, MD Keith [address] [place] [address] documented as of this encounter Visit Diagnoses Not on filedocumented in this encounter Additional Health Concerns Assessment Noted Time PHQ-9 Depression Total Score: 0 02/15/20 25 11:16 AM EDT documented as of this encounter Care Teams Training Personnel Supervisor Relationship Specialty Start Date End Date NameKeith MD [address] [place] [address] PCP - General Family Medicine 03/03/16 documented as of this encounter
--- OUTSIDE RECORDS SUMMARY | 2025-07-15 12:31 | XMS_ITS | Encounter Summary ---
Author Organization [employer] Address [address] [place] [address] 7 [place] [address] Care Team Providers Care Haul Cane Brakeman Name Role Phone Name, Keith GERMAN Primary Care Provider [phone] Reason for Visit * Reason Onset Date Comments Appointment 04/10/2023 Encounter Details Date Type Department Care Team (Late st Contact Info) Description 04/10/2023 Telephone [facility] [address] [place] [address] Hugo Ximena [address] [place] [address] Appointment Social History Tobacco Use Types Packs/Day Years Used Date Smoking Tobacco: Never Assessed Comments Unknown Sex and Gender Information Value Date Recorded Sex Assigned at Female 07/11/2022 10:18 AM EDT Legal Sex Female 10:18 AM EDT Gender Identity Female 07/11/2022 10:18 AM EDT Sexual Orientation Lesbian 01/10/2025 2: 17 PM EDT documented as of this encounter Miscellaneous Notes * Telephone Encounter - Kaye Ladd - 04/10/2023 8:28 AM EDT Patient has been calling in checking if there are any open appts for her cleaning. She has been on waitlist in [facility] since 10/2022. She called in today and wanted me to check on status of appt. documented in this encounter Plan of Treatment Upcoming Encounters Date Type Department Care Team (Late st Contact Info) Description 08/27/2025 10:30 AM EST Office Visit [facility] [address] [place] [address] Name, MD Keith [address] [place] [address] documented as of this encounter Visit Diagnoses Not on filedocumented in this encounter Care Teams Haul Cane Brakeman Relationship Specialty Start Date End Date Name, MD Keith [address] [place] [address] PCP - General Family Medicine 03/03/16 documented as of this encounter
--- OUTSIDE RECORDS SUMMARY | 2025-07-15 12:31 | XMS_ITS | Encounter Summary ---
Author Organization [employer] Address [address] [place] [address] 7 [place] [address] Care Team Providers Care Senior Civil Engineer Name Role Phone Name, Keith GERMAN Primary Care Provider [phone] Encounter Details Date Type Department Care Team (Latest Contact Info) Description 12/29/2020 Abstract [facility] CONVERSION[facility] Dental, Provider, DDS Social History Tobacco Use Types Packs/Day Years [...] Description 08/27/2025 10:30 AM EST Office Visit [facility] [address] [place] [address] NameKeith MD [address] [place] [address] documented as of this encounter Visit Diagnoses Not on filedocumented in this encounter Care Teams Senior Civil Engineer Relationship Specialty Start Date End Date Keith Self MD [address] [place] [address] PCP - General Family Medicine 03/03/16 documented as of this encounter
--- OUTSIDE RECORDS SUMMARY | 2025-07-15 12:31 | XMS_ITS | Encounter Summary ---
Author Organization [employer] Address [address] [facility] 7t [place] [address] Care Team Providers Care Resident Care Technician Name Role Phone Name, Keith GERMAN Primary Care Provider [phone] Encounter Details Date Type Department Care Team ([facility] st Contact Info) Description 07/15/2025 Orders Only [facility] [address] [place], [place] [phone] Andrey Thayer MD [address] [place] [address] Social History Tobacco Use Types Packs/Day Years [...] Description 08/27/2025 10:30 AM EST Office Visit [facility] [address] [place] [address] Name, MD Keith [address] [place] [address] documented as of this encounter Procedures Procedure Name Priority Date/Time Associated Diagnosis Comments US VENOUS DUPLEX LE RT Routine 07/15/2025 11:05 AM EST documented in this encounter Results * US VENOUS DUPLEX LE RT (07/15/2025 11:05 AM EST) Anatomical Region Laterality Modality Abdomen Ultrasound 07/15/2025 11:0 5 AM EST Narrative 07/15/2025 11:28 AM EST [address] [address] Ultrasound Report Signed Patient: Eleni Shearer MR#: [id number] : 1970 Acct:[id number] Age/Sex: 55 / F ADM Date: 07/15/25 Loc: HO.US Attending Dr: Andrey Thayer MD Ordering Physician: ANDREY THAYER MD Date of Service: 07/15/25 Procedure(s): US venous duplex LE RT Accession Number(s): [id number] cc: ANDREY THAYER MD; Name,Keith GERMAN Reason for Exam: PAIN, INJECTED ZEPBOUND IN RT THIGH 2 WKS AGO, PAIN/ SWELLING 2 DAYS LATER EXAMINATION: US TRIPLEX LOWER EXTREMITY, RIGHT CLINICAL INFORMATION: Swelling and pain. COMPARISON: None available. TECHNIQUE: Color-flow triplex imaging with spectral analysis and compression Doppler were performed on the right lower extremity. FINDINGS: Respiratory variation, normal compression and augmented flow are noted throughout the right lower extremity. The visualized common femoral vein, superficial femoral vein, profunda femoral vein, popliteal vein and midcalf peroneal and posterior tibial venous segments show no evidence of deep venous thrombosis. There is no Chow's cyst. US/US venous duplex LE RT IMPRESSION: No evidence of deep venous thrombosis involving the right lower extremity. Electronically signed by: Venice Urena MD 07/15/2025 11:25 AM EST Dictated By: Venice Urena MD Signed By: <Electronically signed by Venice Urena MD in OV> 07/15/25 1125 DD/ 1105 TD/TT: 07/15/25 1117 Network Program Manager: KATE Procedure Note Donotuseinterpreter, Image - 07/15/2025 [place] [address] Ultrasound Report Signed Patient: Brice Shearer#: [id number] : 1970Acct:[id number] Age/Sex: 55 / FADM Date: 07/15/25 Loc: HO.US Attending Dr: Andrey Thayer MD Ordering Physician: ANDERY THAYER MD Date of Service: 07/15/25 Procedure(s): US venous duplex LE RT Accession Number(s): [id number] cc: ANDREY THAYER MD; Name,Keith GERMAN Reason for Exam: PAIN, INJECTED ZEPBOUND IN RT THIGH 2 WKS AGO, PAIN/SWELLING 2 DAYS LATER EXAMINATION: US TRIPLEX LOWER EXTREMITY, RIGHT CLINICAL INFORMATION: Swelling and pain. COMPARISON: None available. TECHNIQUE: Color-flow triplex imaging with spectral analysis and compression Doppler were performed on the right lower extremity. FINDINGS: Respiratory variation, normal compression and augmented flow are noted throughout the right lower extremity. The visualized common femoral vein, superficial femoral vein, profunda femoral vein, popliteal vein and midcalf peroneal and posterior tibial venous segments show no evidence of deep venous thrombosis. There is no Chow's cyst. US/US venous duplex LE RT IMPRESSION: No evidence of deep venous thrombosis involving the right lower extremity. Electronically signed by: Venice Urena MD 07/15/2025 11:25 AM [facility] Dictated By: Venice Urena MD Signed By: <Electronically signed by Venice Urena MD in OV> 07/15/25 1125 DD/ 1105 TD/TT: 07/15/25 1117 Network Program Manager: KATE Andrey Thayer MD IMAnna US PROCEDURES Final Result documented in this encounter Visit Diagnoses Not on filedocumented in this encounter Additional Health Concerns Assessment Noted Time PHQ-9 Depression Total Score: 0 02/15/20 25 11:16 AM EDT documented as of this encounter Care Teams Resident Care Technician Relationship Specialty Start Date End Date Name, MD Keith [address] [place] [address] PCP - General Family Medicine 03/03/16 documented as of this encounter
--- OUTSIDE RECORDS SUMMARY | 2025-07-15 12:31 | XMS_ITS | Encounter Summary ---
Author Organization [employer] Address [address] [facility] [address] [place] [address] Care Team Providers Care Circular Head Saw Operator Name Role Phone Name, Keith GERMAN Primary Care Provider [phone] Encounter Details Date Type Department Care Team (Late st Contact Info) Description 09/14/2023 Abstract [facility] ADULT DENTAL [address] [place], [place] [id number] Raymundo Bowers DDS [address] [place], [place] [phone] Social History Tobacco Use Types Packs/Day Years Used Date Smoking Tobacco: Never Passive Smoke Exposure: Never Smokeless Tobacco: Never Alcohol Use Standard Drinks/Week Comments Yes 0 (1 standard drink = 0.6 oz pur e alcohol) socially Depression Answer Date Recorded Patient Health Questionnaire-9 Score 0 06/22/2023 Housing Stability Answer Date Recorded What is your housing situation today? I have dillon pappas 07/07/[address] you li ve. Do you have problems with any of the following? None of the above 07/07/2023 Food Insecurity Answer Date Recorded Within the past 12 months, y ou worried that your food would run out before you got money to buy more: Never True 07/07/2023 Within the past 12 months,th e food you bought just didn't last and you didn't have enough money to get more: Never True Transportation Answer Date Recorded In the past 12 months, has l ack of transportation kept you from medical appts, meetings, work or from getting things needed for daily living? No 07/07/2023 Utilities Answer Date Recorded In the past 12 months, has t he electric, gas, oil or water company threatened to shut off services in your home? No 07/07/2023 Depression Answer Date Recorded Patient Health Questionnaire-2 Score 0 06/22/2023 Comments Unknown Sex and Gender Information Value [...] Description 08/27/2025 10:30 AM EST Office Visit [facility] MEDICINE [address] [place] [id number] Name, MD Keith [address] [place] [id number] documented as of this encounter Visit Diagnoses Not on filedocumented in this encounter Additional Health Concerns Assessment Noted Time PHQ-9 Depression Total Score: 0 06/22/20 23 11:22 AM EDT documented as of this encounter Care Teams Circular Head Saw Operator Relationship Specialty Start Date End Date Name, MD Keith [address] [place] [id number] PCP - General Family Medicine 03/03/16 documented as of this encounter
--- OUTSIDE RECORDS SUMMARY | 2025-07-15 12:31 | XMS_ITS | Encounter Summary ---
Author Organization [employer] [facility] Address [address] [place] [address] [address] [place] [address] Care Team Providers Care Mining Helper Name Role Phone Name, Keith GERMAN Primary Care Provider Encounter Details Date Type Department Care Team (Latest Contact Info) Description 01/15/[address] [facility] CONVERSIONS Dental, Provider, DDS Social History Tobacco [...] Description 08/27/2025 10:30 AM EST Office Visit [facility] MEDICINE [address] [place] [address] NameKeith MD [address] [place] [address] documented as of this encounter Visit Diagnoses Not on filedocumented in this encounter Care Teams Mining Helper Relationship Specialty Start Date End Date Keith Self MD [address] [place] [address] PCP - General Family Medicine 03/03/16 documented as of this encounter
--- OUTSIDE RECORDS SUMMARY | 2025-07-15 12:31 | XMS_ITS | Encounter Summary ---
Author Organization [employer] Address [address] [facility] [address] [place] [address] Care Team Providers Care Fixed Route Bus Operator Name Role Phone Name, Keith GERMAN Primary Care Provider [phone] Reason for Visit * Reason Comments Med Change Request Encounter Details Date Type Department Care Team ([facility] Contact Info) Description 03/25/2025 Refill [facility] MEDICINE [address] [place], [place] [phone] Name, MD Keith [address] [place] [address] Morbid obesity (CMS/HCC) Social History Tobacco Use Types Packs/Day Years [...] Description 08/27/2025 10:30 AM EST Office Visit [facility] MEDICINE [address] [place] [phone] NameKeith MD [address] [place] [address] documented as of this encounter Visit Diagnoses Diagnosis Morbid obesity (CMS/HCC) (HCC) Morbid obesity documented in this encounter Additional Health Concerns Assessment Noted Time PHQ-9 Depression Total Score: 0 02/15/20 25 11:16 AM EDT documented as of this encounter Care Teams Fixed Route Bus Operator Relationship Specialty Start Date End Date Keith Self MD [address] [place] [id number] PCP - General Family Medicine 03/03/16 documented as of this encounter
--- OUTSIDE RECORDS SUMMARY | 2025-07-15 12:31 | XMS_ITS | Clinical Summary ---
Author Organization [employer] Address [address] [place] [address] [address] [place] [address] Care Team Providers Care Slinger Sequins Name Role Phone Name, Keith GERMAN Primary Care Provider Allergies No known active allergies Medications Blood Pressure kit Use once a day 1 kit 023 Active meclizine (Antivert) 12.5 MG tabletIndicati ons:Dizziness TAKE 1 TABLET BY MOUTH IF NEEDED IN THE MORNING, AT NOON, AND AT BEDTIME FOR DIZZINESS. 90 tablet 1 024 Active omeprazole (PriLOSEC) [address] capsule TAKE 1 CAPSULE BY MOUTH BEFORE BREAKFAST. DO NOT CRUSH OR CHEW 90 capsule 1 024 Active SUMAtriptan (Imitrex) 50 MG tablet TAKE 1 TABLET BY MOUTH 1 TIME IF NEEDED FOR MIGRAINE FOR UP TO 1 DOSE. MAY REPEAT DOSE ONCE IN 2 HOURS IF NO RELIEF. DO NOT EXCEED 2 DOSES IN 24 HOURS. 9 tablet 2 025 Active chlorthalidone (Hygroton) 25 MG tabletIndicati ons:Hypertensi on, unspecified type TAKE 1 TABLET (25 MG) BY MOUTH ONCE PER DAY. 90 tablet 3 025 Active Zepbound 5 MG/0.5ML solution auto-injector Inject 0.5 mL under the skin every 7 (seven) days. 025 Active Tirzepatide-We ight Management (Zepbound) 7.5 MG/0.5ML solution auto-injector Inject 0.5 mL (7.5 mg) under the skin 1 (one) time per week. INJECT ONE PEN (=7.5 MG) SUBCUTANEOUSLY ONCE A WEEK 2 mL 2 Active mometasone (Elocon) 0.1 % ointment APPLY TOPICALLY ONCE PER DAY 45 g 2 Active tiZANidine (Zanaflex) 2 MG tablet Take 1 tablet (2 mg) by mouth if needed in the morning and at bedtime for muscle spasms. May cause drowsiness. Do not drive after using. 30 tablet Active meloxicam (Mobic) 15 MG tablet take 1 tablet by oral route every day as needed for knee pain 30 tablet Active meloxicam (Mobic) 15 MG tablet take 1 tablet by oral route every day as needed for knee pain 30 tablet 025 2024 Discontinued(R eorder (will not trigger notification to Pharmacy)) Active Problems Problem Noted Date Diagnosed Date History of bariatric surgery 02/14/2025 Polymorphic light eruption 02/14/2025 Overview (02/14/2025): . Hypertension 12/13/2023 Benign paroxysmal positional vertigo 09/21/2023 History of obstructive sleep apnea 06/22/2023 06/22/2023 Overview (12/13/2023): Resolved with wt loss after bariatric surgery Negative sleep study [address] [facility] Periodontal disease 05/01/2023 Dental calculus 05/01/2023 Localized gingival recession 05/01/2023 Primary osteoarthritis of both knees 07/04/2017 06/22/2023 Heartburn 03/03/2016 Morbid obesity (CMS/HCC) 03/03/2016 Thyroid nodule 03/03/2016 06/22/2023 Overview (06/22/2023): Benign biopsy at [facility] Resolved Problems Problem Noted Date Diagnosed Date Resolved Date Elevated blood pressure reading 06/01/2023 03/29/2024 Assessment & Plan (06/01/2023 7:32 PM EDT): Pt denies hx of elevated BP before Today manually checked 160/70 -pt will bring home BP readings ( pt states has a BP machine at home) at next apt w PCP -scheduled for next month -if elevated as well at home will need to start tx at next apt -advised to avoid excess coffee, decrease salt use Numbness 06/01/2023 06/22/2023 Assessment & Plan (06/01/2023 8:49 PM EDT): Symptoms in her left leg seems likely associated w her dxed Meralgia paresthetica of left side---NC studies 2016: Left lateral femoral cutaneous neuropathy and from localizing of symptoms seems L5 distribution. Denies having symptoms at this time But reports numbness in tip of tongue and decrease in taste Complete neuro exam is normal COVID 19 rapid test is neg -unsure etiology of her numbness in tongue but reassured with complete normal neuro exam -will start workup with labs including TSH,chem,CBC,vitamin B12/Folic acid and hb1AC -pt will f w PCP in 4 weeks -if symptoms persist would need Brain MRI to r/o demyelinating disease -alarm signs and symptoms explained to pt to RTC in next days if symptoms are not improving or worsen Knee pain 12/23/2016 06/22/2023 03/29/2024 Lung mass 12/23/2016 06/22/2023 06/22/2023 Meralgia paresthetica 05/02/20162023 Numbness of lower limb 03/03/2016 06/22/202306/22 Osteoarthritis of knee 03/03/2016 06/22/202303/29 Encounters Date Type Department Care Team Description 07/15/2025 9:20 AM EST Office Visit [facility] [address] [place] [address] Andrey Serna MD Pain of right lower extremity (Primary Dx) 07/15/2025 Telephone [facility] [address] [place] [address] Andrey Serna MD 07/15/2025 Orders Only [facility] [address] [place] [address] Andrey Serna MD 07/15/2025 Travel 07/14/2025 Refill [facility] [address] [place] [address] Name, MD Keith 07/10/2025 Telephone [facility] [address] [place] [address] Keith Self MD Nurse Triage 06/17/2025 10:30 AM EDT Telemedicine [address] [address] Jacquelin Red, KATHI Hypertension, unspecified type 06/17/2025 Telephone [facility] [address] [place] [address] Keith Self MD 06/13/2025 Refill [facility] [address] [place] [address] Keith Self MD 06/12/2025 Refill [facility] [address] [place] [address] Keith Self MD 06/03/2025 10:45 AM EDT Office Visit [address] [address] Keith Self MD Mass of lower outer quadrant of left breast (Primary Dx); Morbid obesity (CMS/HCC); Hypertension, unspecified type 06/03/2025 Travel 06/02/2025 Telephone [facility] [address] [place] [address] Jesse Max MA chart prep 04/17/2025 Refill [facility] [address] [place] [address] Keith Self MD Hypertension, unspecified type from Last 3 Months Immunizations Immunization Administration Dates Next Due Hep A, Adult 09/09/2010 Hep B, adult 03/09/2011,10/06/2010,09/09/2010 Influenza injectable quadriv alent preservative free 07/26/2023,09/25/2019 Influenza, IIV3, injectable 06/06/2011, 0 TD (adult), 2 Lf tetanus tox oid, preservative free, adsorbed 06/24/2019 Tdap 01/12/2009 Family History Medical History Relation Name Comments Dementia Mother Relation Name Status Comments Mother Alive Social History Tobacco Use Types Packs/Day Years Used Date Smoking Tobacco: Never Passive Smoke Exposure: Never Smokeless Tobacco: Never Tobacco Cessation:Counseling Given: Not Answered Alcohol Use Standard Drinks/Week Comments Yes 0 [...] Orientation Lesbian 01/10/2025 2: 17 PM EDT Last Filed Vital Signs Vital Sign Reading [...] Mass Index 39.74 07/15/2025 9:21 AM EST Plan of Treatment Upcoming Encounters Date Type Department Care Team (Late st Contact Info) Description 08/27/2025 10:30 AM EST Office Visit [facility] [address] [place] [address] Name, MD Keith [address] [place] [address] Health Maintenance Due Date Last Done Comments CT Colonography 1971 FIT DNA/Cologuard 1971 FIT 1971 FOBT 1970 Sigmoidoscopy 1970 Pneumococcal Vaccine: 50+ Years (1 of 1 - PCV) 2021 Zoster Vaccines (1 of 2) 2021 Dental Oral Exam 11/02/2023 05/01/2023, 10/2021, 12/29/2020, Additional history exists Dental Prophylaxis 11/02/2023 05/01/2023, 0 02/10/2022, 08/26/2021, Additional history exists Dental X-Ray: Bitewings 05/02/2024 05/01/20 23, 02/10/2022, 12/29/2020, Additional history exists Colonoscopy 07/16/2024 07/16/2019 Colorectal Cancer Screening 07/16/2024 Dental X-Ray: Full Mouth 02/11/2025 02/10/2022, 12/10 COVID-19 Vaccine ( season) 2025 07/19/2022, 08/20/2021, 01/11/2021, Additional history exists Influenza Vaccine (#1) 2025 , 09/25/2019, 06/06/2011, Additional history exists Mammogram 11/04/2025 11/04/2023, 07/14, 04/17/2019 Alcohol/Substance Use Screening 02/14/2026 02/14/2025 Depression Screening 02/14/2026 02/14/2025, 02/15/20 25 Disability Screening 02/14/2026 02/14/2025 SDOH Screening 02/14/2026 02/14/2025 Tobacco Screening 07/15/2026 07/15/2025 Cervical Cancer Screening 04/25/2029 HPV/Cotest 04/25/2029 04/25/2024, 04/24/2019 Pap Smear 04/25/2029 04/25/2024 DTaP/Tdap/Td Vaccines (3 - Td or Tdap) 06/24/2029 06/24/2019, 01/12/2009 Lipid Panel 02/25/2030 02/25/2025, 07/19/2022 RSV Patients and Patients Aged 60 years or older (1 - 1-dose 75+ series) 2046 Hepatitis A Vaccines Aged Out 09/09/2010 No long er eligible based on patient's age to complete this topic Hepatitis B Vaccines Completed 03/09/2011, 10/06/2010, 09/09/2010 HIV Screening Completed 12/13/2023 Hepatitis C Screening Completed 12/13/2023 HIB Vaccines Aged Out No longer eligi ble based on patient's age to complete this topic HPV Vaccines Aged Out No longer eligi ble based on patient's age to complete this topic IPV Vaccines Aged Out No longer eligi ble based on patient's age to complete this topic Meningococcal B Vaccine Aged Out No l onger eligible based on patient's age to complete this topic Meningococcal Vaccine Aged Out No kenya estrella eligible based on patient's age to complete this topic RSV under 20 months Aged Out No longe r eligible based on patient's age to complete this topic Rotavirus Vaccines Aged Out No longer eligible based on patient's age to complete this topic Procedures Procedure Name Priority Date/Time Associated Diagnosis Comments US VENOUS DUPLEX LE RT Routine 11:05 AM EST XR KNEE 3 VIEWS RIGHT Routine 07/15/2025 10:57 AM EST Pain of right lower extremity LIPID PANEL, STANDARD Routine 02/25/2025 8:47 AM EDT Morbid obesity (CMS/HCC) History of bariatric surgery THINPREP IMAGING PAP AND HPV MRNA E6/E7 Routine 04/25/2024 10:33 AM EDT HEPATITIS C ANTIBODY Routine 12/13/2023 11:25 AM EDT Hypertension, unspecified type Screen for STD (sexually transmitted disease) HIV 1/2 ANTIGEN/ANTIBODY, FOURTH GENERATION W/RFL Routine 12/13/2023 11:25 AM EDT Hypertension, unspecified type Screen for STD (sexually transmitted disease) BI MAMMOGRAM SCREENING TOMOSYNTHESIS BILATERAL Routine 11/04/2023 9:00 AM EST Full PROPHYLAXIS - ADULT Routine 05/01/2023 8:00 AM EDT BITEWINGS - 4 RADIOGRAPHIC IMAGES Routine 05/01/2023 8:00 AM EDT PERIODIC ORAL EVALUATION - ESTABLISHED PATIENT Routine 05/01/2023 8:00 AM EDT INTRAORAL - COMPLETE SERIES OF RADIOGRAPHIC IMAGES Routine 02/10/2022 12:00 AM EDT HM COLONOSCOPY Routine 07/16/2019 from Last 3 Months or Most Recently Relevant to Health Maintenance Results * US VENOUS DUPLEX LE RT (07/15/2025 11:05 AM EST) Anatomical Region Laterality Modality Abdomen Ultrasound 07/15/2025 11:0 5 AM EST Narrative 07/15/2025 11:28 AM EST [place] [address] Ultrasound Report Signed Patient: Eleni Shearer MR#: [id number] : 1970 Acct:[id number] Age/Sex: 55 / F ADM Date: 07/15/25 Loc: HO.US Attending Dr: Andrey Serna MD Ordering Physician: ANDREY SERNA MD Date of Service: 07/15/25 Procedure(s): US venous duplex LE RT Accession Number(s): [id number] cc: ANDREY SERNA MD; Name,Keith GERMAN Reason for Exam: PAIN, [...] 07/15/25 1125 DD/ 1105 TD/TT: 07/15/25 1117 [employer]: KATE Procedure Note Donotuseinterpreter, Image - 07/15/2025 [place] [address] Ultrasound Report Signed Patient: Brice Shearer#: [id number] : 1970Acct:[id number] Age/Sex: 55 / FADM Date: 07/15/25 Loc: .US Attending Dr: Andrey Serna MD Ordering Physician: ANDREY SERNA MD Date of Service: 07/15/25 Procedure(s): US venous duplex LE RT Accession Number(s): [id number] cc: ANDREY SERNA MD; Name,Keith GERMAN Reason for Exam: PAIN, [...] Venice Urena MD 07/15/2025 11:25 AM EST RP Dictated By: Venice Urena MD Signed By: <Electronically signed by Venice Urena MD in OV> 07/15/25 1125 DD/ 1105 TD/TT: 07/15/25 1117 [employer]: KATE us Andrey Serna MD IMG US PROCEDURES Final Result * XR Knee 3 Views Right (07/15/2025 10:57 AM EST) Anatomical Region Laterality Modality Lower Extremities, Knee Right Radiogra phic Imaging 07/15/2025 10:5 7 AM EST Narrative 07/15/2025 11:08 AM EST [place] [address] XRay Report Signed Patient: Eleni Shearer MR#: [id number] : 1970 Acct:[id number] Age/Sex: 55 / F ADM Date: 07/15/25 Loc: HO.US Attending Dr: Andrey Serna MD Ordering Physician: ANDREY SERNA MD Date of Service: 07/15/25 Procedure(s): XR knee RT 3V Accession Number(s): [id number] cc: ANDREY SERNA MD; Name,Keith GERMAN Reason for Exam: PAIN [...] Pepe Shane MD 07/15/2025 11:04 AM EST RP Dictated By: Pepe Aparicio MD Signed By: <Electronically signed by Pepe Magaña MD in OV> 07/15/25 1104 DD/ 1057 TD/TT: 07/15/25 1100 [employer]: Procedure Note Donotuseinterpreter, Image - 07/15/[address] [address] XRay Report Signed Patient: Brice Shearer#: [id number] : 1970Acct:[id number] Age/Sex: 55 / FADM Date: 07/15/25 Loc: . Attending Dr: Andrey Serna MD Ordering Physician: ANDREY SERNA MD Date of Service: 07/15/25 Procedure(s): XR knee RT 3V Accession Number(s): [id number] cc: ANDREY SERNA MD; Name,Keith GERMAN Reason for Exam: PAIN [...] Pepe Shane MD 07/15/2025 11:04 AM EST RP Dictated By: Pepe Aparicio MD Signed By: <Electronically signed by Pepe Magaña MDin OV> 07/15/25 1104 DD/ 1057 TD/TT: 07/15/25 1100 [employer]: Andrey Serna MD IMG XR PROCEDURES Final Result * (ABNORMAL) Lipid Panel, Standard (02/25/2025 8:47 AM EDT) Triglycerides 132 <150 mg/dL [facility] Comment:Desirable Triglyceri de: less than 150 mg/dLBorderline High Triglyceride 150-199 mg/dLHigh Triglyceride: 200-499 mg/dLVery High Triglyceride: greater than or equal to 5OO mg/dL Cholesterol 200(H) <200 mg/dL [facility] Comment:Desirable Cholestero l: less than 200 mg/dLBorderline High Cholesterol: 200-239 mg/dLHigh Cholesterol: greater than 239 mg/dL LDL Cholesterol Calculated 111(H) <100 mg/dL [facility] Comment:Desirable LDL: less than 100 mg/dLNear Optimal/Above Optimal LDL: 110- 129 mg/dLBorderline High LDL: 130-159 mg/dLHigh LDL: 160-189 mg/dLVery High LDL: greater than or equal to 190 mg/dL HDL Cholesterol 63 >40 mg/dL [facility] Comment:Desirable HDL: great er than 40 mg/dL Note: This HDL assay may give artificially low results in patients with liver disease. Blood Venous blood specimen / Unknown 02/25/2025 8:47 AM EDT 02/25/2025 11:45 AM EDT us Keith Name LAB BLOOD ORDERABLES Final Resul t [facility] [address] [place], [place] [phone] * ThinPrep Imaging Pap and HPV mRNA E6/E7 (04/25/2024 10:33 AM EDT) HPV nRNA E6/E7 Not Detected Not Detected [facility] Comment:Methodology: Transcr iption-Mediated AmplificationThis assay detects E6/E7 viral messenger RNA (mRNA) from 14high-risk HPV types (16,18,31,33,35,39,45,51,52,56,58,59,66,68).Cervical sources are required for HPV testing.If a vaginal source from a patient who has had atotal hysterectomy with removal of cervix wassubmitted, please contact the testing laboratoryfor alternative testing options.For additional information, please refer tohttp://education.[employer]/faq/DUT277i3(This link if provided for information/educational purposes only.)THIS TEST WAS PERFORMED AT:[employer] [address] [phone] MEDINA MD SOURCE: SEE NOTE [facility] Comment:None given Report Status: [facility] Clinical Information: SEE NOTE [facility] Comment:None given LMP: SEE NOTE [facility] Comment:NONE GIVEN Prev. PAP: SEE NOTE [facility] Comment:NONE GIVEN Prev. BX: SEE NOTE [facility] Comment:NONE GIVEN Statement Of Adequacy: SEE NOTE [facility] Comment:Satisfactory for corbin luation.Endocervical/transformation zone component absent. General Categorization: [facility] Interpretation/Result: SEE NOTE [facility] Comment:Cytology Results: Ne gative for intraepitheliallesion or malignancy. Cytology Comment SEE NOTE [facility] Comment:This Pap test has be en evaluated with computerassisted technology. Dairy Store Manager: SEE NOTE [facility] Comment:GSG, CT(ASCP)CT scre ening location: [address] [address] Review Dairy Store Manager: [facility] Pathologist [facility] PAP Infection [facility] See Note SEE [facility] Comment:EXPLANATORY NOTE:The Pap is a screening test for cervical cancer. It isnot a diagnostic test and is subject to false negativeand false positive results. It is most reliable when asatisfactory sample, regularly obtained, is submittedwith relevant clinical findings and history, and whenthe Pap result is evaluated along with historic andcurrent clinical information. 04/25/2024 10:3 3 AM EDT 04/25/2024 5:40 PM EDT Narrative [facility] - 04/30/2024 11:57 AM EDT SEE RESULTS IN EMR Carolyn Vaca [facility] PATHOLOGY ORDERABLES Final Result Performing Organization Address [facility]/ZIP Co de Phone Number [facility] [address] [place] [phone] * Hepatitis C Ab (12/13/2023 11:25 AM EDT) Hepatitis C Antibody Nonreactive Nonreactive [facility] Comment:Antibodies to HCV no t detected; does not exclude early acuteHCV infection. Blood Venous blood specimen / Unknown 12/13/2023 11:25 AM EDT 12/13/2023 1:20 PM EDT Keith Self MD LAB BLOOD ORDERABLES Final Resul t Performing Organization Address [facility] de Phone Number [facility] [address] [place] [phone] * HIV-1/2 Antigen and Antibodies, Fourth Generation, with Reflexes (12/13/2023 11:25 AM EDT) HIV AB/AG Nonreactive Nonreactive [facility] Comment:HIV-1 p24 Ag and/or HIV-1/HIV-2 Ab not detected.A test result that is nonreactive does not exclude thepossibility of exposure to or infection with HIV-1 and/orHIV-2. Nonreactive results in this assay for individualswith prior exposure to HIV-1 and/or HIV-2 may be due toantigen and antibody levels that are below the limit ofdetection of this assay.The [employer] HIV Ag/Ab Combo assay result andsupplemental assay results should be interpreted inconjunction with the patient's clinical presentation,history and other laboratory results. If the results areinconsistent with clinical evidence, additional testing issuggested to confirm the result. Blood Venous blood specimen / Unknown 12/13/2023 11:25 AM EDT 12/13/2023 1:20 PM EDT us Keith Self MD LAB BLOOD ORDERABLES Final Resul t [facility] [address] [place] [address] [phone] * BI Mammogram Screening Tomosynthesis Bilateral (11/04/2023 9:00 AM EST) Anatomical Region Laterality Modality Breast Bilateral Mammography 11/04/2023 9:00 AM EST Narrative 11/12/2023 11:28 AM EST [facility] [address] [place] [address] Mammography Report Signed Patient: Eleni Shearer MR#: [id number] : 1970 Acct:[id number] Age/Sex: 53 / F ADM Date: 11/04/23 Loc: MAMMO Attending Dr: Keith Self MD Ordering Physician: Keith Self MD Results: 1Negative Date of Service: 11/04/23 Follow Up: 1 Year From Orig ina Mammogram Procedure(s): MM tomosynthesis screening BI Accession Number(s): [id number] cc: Keith Self MD EXAMINATION: MM SCREENING DIGITAL BREAST TOMOSYNTHESIS, BILATERAL CLINICAL INFORMATION: Screening. Asymptomatic. COMPARISON: Mammography: This study is compared with prior exams dating back to 2019. TECHNIQUE: Digital breast tomosynthesis is performed in both the craniocaudal and mediolateral oblique views along with computer-aided detection (CAD). Synthesized 2D images are generated from the tomosynthesis. FINDINGS: There are scattered areas of fibroglandular density (ACR BI-RADS breast composition Category b). There are no significant masses, abnormal calcifications, or other abnormalities. MM/MM tomosynthesis screening BI IMPRESSION: No mammographic evidence of malignancy. ASSESSMENT: BI-RADS BI-RADS 1 - Negative RECOMMENDATION: Routine annual mammography screening. 1 year F/U This examination should not preclude the clinical evaluation of a suspicious palpable abnormality. This patient's information was entered into a reminder system with a target due date for their next mammogram. Dictated By: Elizabeth Briones MD Signed By: <Electronically signed by Elizabeth Briones MD in OV> 11/12/23 1125 DD/ 09 TD/TT: [employer]: Procedure Note Donotuseinterpreter, Image - 11/12/2023 [facility] [address] [place] [address] [place] [address] Mammography Report Signed Patient: Brice Shearer#: [id number] : 1970Acct:[id number] Age/Sex: 53 / FADM Date: 11/04/23 Loc: HO.MAMMO Attending Dr: Keith Self MD Ordering Physician: Keith Selfesults: 1Negative Date of Service: 11/04/23Follow Up: 1 Year From Orig inal Mammogram Procedure(s): MM tomosynthesis screening BI Accession Number(s): [id number] cc: Keith Self MD EXAMINATION: MM SCREENING DIGITAL BREAST TOMOSYNTHESIS, BILATERAL CLINICAL INFORMATION: Screening. Asymptomatic. COMPARISON: Mammography: This study is compared with prior exams dating back to 2019. TECHNIQUE: Digital breast tomosynthesis is performed in both the craniocaudal and mediolateral oblique views along with computer-aided detection (CAD). Synthesized 2D images are generated from the tomosynthesis. FINDINGS: There are scattered areas of fibroglandular density (ACR BI-RADS breast composition Category b). There are no significant masses, abnormal calcifications, or other abnormalities. MM/MM tomosynthesis screening BI IMPRESSION: No mammographic evidence of malignancy. ASSESSMENT: BI-RADS BI-RADS 1 - Negative RECOMMENDATION: Routine annual mammography screening. 1 year F/U This examination should not preclude the clinical evaluation of a suspicious palpable abnormality. This patient's information was entered into a reminder system with a target due date for their next mammogram. Dictated By: Elizabeth Briones MD Signed By: <Electronically signed by Elizabeth Briones MD in OV> 11/12/235 DD/ 09 TD/TT: [employer]: Keith Self MD IM BI PROCEDURES Edited Result - Final * (ABNORMAL) Hm Colonoscopy (07/16/2019) Colonoscopy Abnormal(A ) Normal James Piña MD HEALTH MAINTENANCE Final Result from Last 3 Months or Most Recently Relevant to Health Maintenance Insurance [facility] Care Teams [employer] Relationship Specialty Start Date End Date Name, MD Keith [address] [place] [phone] PCP - General Family Medicine 03/03/16
--- OUTSIDE RECORDS SUMMARY | 2025-07-15 12:31 | XMS_ITS | Encounter Summary ---
Author Organization [employer] Address [address] [facility] [address] [place] [address] Care Team Providers Care Internet Marketing Consultant Name Role Phone Name, Keith GERMAN Primary Care Provider [phone] Encounter Details Date Type Department Care Team ([facility] st Contact Info) Description 08/20/2024 Telephone [facility] [address] [place], [place] [phone] Name, MD Keith [address] [place] [address] Social History Tobacco Use Types Packs/Day Years [...] Patient Health Questionnaire-2 Score 0 06/22/2023 Comments No Sex and Gender Information Value [...] Description 08/27/2025 10:30 AM EST Office Visit [facility] [address] [place] [address] Name, MD Keith [address] [place] [address] documented as of this encounter Visit Diagnoses Not on filedocumented in this encounter Additional Health Concerns Assessment Noted Time PHQ-9 Depression Total Score: 0 06/22/20 23 11:22 AM EDT documented as of this encounter Care Teams Internet Marketing Consultant Relationship Specialty Start Date End Date Name, MD Keith [address] [place] [phone] PCP - General Family Medicine 03/03/16 documented as of this encounter
--- OUTSIDE RECORDS SUMMARY | 2025-07-15 12:31 | XMS_ITS | Encounter Summary ---
Author Organization [employer] Address [address] [facility] [address] [place] [address] Care Team Providers Care Group Insurance Special Agent Name Role Phone Name, Keith GERMAN Primary Care Provider Reason for Visit * Reason Comments Med Refill Encounter Details Date Type Department Care Team ([facility] st Contact Info) Description 03/23/2025 Refill [facility] [address] [place], [place] [phone] Name, MD Keith [address] [place] [address] Hypertension, unspecified type Social History Tobacco Use Types Packs/Day Years [...] Description 08/27/2025 10:30 AM EST Office Visit [facility] [address] [place] [phone] NameKeith MD [address] [place] [address] documented as of this encounter Visit Diagnoses Diagnosis Hypertension, unspecified type documented in this encounter Additional Health Concerns Assessment Noted Time PHQ-9 Depression Total Score: 0 02/15/20 25 11:16 AM EDT documented as of this encounter Care Teams Group Insurance Special Agent Relationship Specialty Start Date End Date Name, MD Keith [address] [place] [phone] PCP - General Family Medicine 03/03/16 documented as of this encounter
--- OUTSIDE RECORDS SUMMARY | 2025-07-15 12:31 | XMS_ITS | Encounter Summary ---
Author Organization [employer] Address [address] [facility] [address] [place] [address] Care Team Providers Care Bottling Attendant Name Role Phone Name, Keith GERMAN Primary Care Provider [phone] Reason for Visit * Reason Comments Med Refill Encounter Details Date Type Department Care Team ([facility] Contact Info) Description 07/14/2025 Refill [facility] [address] [place], [place] [phone] Name, MD Keith [address] [place] [address] Social History Tobacco Use Types Packs/Day Years [...] Description 08/27/2025 10:30 AM EST Office Visit [facility] [address] [place] [phone] NameKeith MD [address] [place] [address] documented as of this encounter Visit Diagnoses Not on filedocumented in this encounter Additional Health Concerns Assessment Noted Time PHQ-9 Depression Total Score: 0 02/15/20 25 11:16 AM EDT documented as of this encounter Care Teams Bottling Attendant Relationship Specialty Start Date End Date NameKeith MD [address] [place] [id number] PCP - General Family Medicine 03/03/16 documented as of this encounter
== END 2025-07-15 10:36 | disposition home or self-care (01) ==
LOC: HO.US 10:35
PROVIDERS: PCP Internal Medicine Geriatric Medicine; Visit Provider Emergency Medicine
DX: M79.604 Pain in right leg (principal); M79.89 Other specified soft tissue disorders
CPT/HCPCS: 73562; 93971

== ENCOUNTER → 2025-07-15 10:57 | Outpatient (BNV) | payer OTHER, SELFPAY | PROVIDERS: PCP Internal Medicine Geriatric Medicine; Visit Provider Radiology Diagnostic Radiology | DX: M79.661 Pain in right lower leg (principal); R22.41 Localized swelling, mass and lump, right lower limb; M17.11 Unilateral primary osteoarthritis, right knee; M25.461 Effusion, right knee | CPT/HCPCS: 73562; 93971 ==

== ENCOUNTER 2025-07-28 11:25 | Outpatient (AMB) | payer OTHER, SELFPAY ==
--- NOTE | 2025-07-28 11:28 | A.OFFVIS_ITS ---
Intake Visit Reasons: OV-B/L knee pain Intake Note: Eleni is a 55 year old female who presents today for a follow up of her Bilateral Knee OA. She was last seen with NE to discuss a Right TKA, but at this time she is not a surgical canidate due to her BMI. She reports the right knee is worse than the left. She reports that the first genicular block done was helpful for about 1 year but the second was not helpful. She has had cortisone and gel injections as well that were not helpful. She reports that she had an increase of pain in the right right leg for about a month now. She has a hard time identifying the pain that she is having, when she tried to explain it she describes it as a burning pain in her muscles. She reports that she did a zepbound injection in the Left Thigh and after this is when her symptoms onset. She has tried Meloxicam and muscle relaxers that were not helpful. Allergies No Known Allergies Allergy (Verified 10/03/24 09:46) HPI HPI OV-B/L knee pain: Details: Eleni is a 55 year old female who presents today for a follow up of her Bilateral Knee OA. She was last seen with NE to discuss a Right TKA, but at this time she is not a surgical canidate due to her BMI. She reports the right knee is worse than the left. She reports that the first genicular block done was helpful for about 1 year but the second was not helpful. She has had cortisone and gel injections as well that were not helpful. She reports that she had an increase of pain in the right right leg for about a month now. She has a hard time identifying the pain that she is having, when she tried to explain it she describes it as a burning pain in her muscles. She reports that she did a zepbound injection in the Left Thigh and after this is when her symptoms onset. She has tried Meloxicam and muscle relaxers that were not helpful. [facility] Medical History (Updated 07/28/25 @ 12:14 by Pam Theodore PA-C) Multinodular goiter COVID-19 vaccine series completed GERD (gastroesophageal reflux disease) Iron deficiency anemia Anal fistula Internal and external hemorrhoids without complication Morbid obesity Arthritis Surgical History Hx of hemorrhoidectomy History of esophagogastroduodenoscopy (EGD) Hx of colonoscopy Hx of prior ablation treatment History of appendectomy History of cholecystectomy History of tonsillectomy H/O bariatric surgery Family History Mother Diabetes Family history of thyroid problem High blood pressure Glaucoma Father Diabetes High cholesterol Social History Are you a primary nursing care attendant to a significant other at home: No Do you presently have visiting nurse or other home services: No Alcohol intake: current Alcohol intake frequency: holidays/special occasions only Patient Tobacco Use Status: Never used Tobacco Physical Exam Const General: cooperative, healthy appearing and no acute distress Resp Effort & Inspection: normal respiratory effort and able to speak in complete s entences Extrem Other: Right knee normal to inspection. No joint effusion present. Range of motion 0- 90 degrees. Tenderness to palpation both medial and lateral joint lines. NVI. Psych Appearance: grossly normal Mental Status: mental status grossly normal Attitude: cooperative Assessment & Plan Assessment & Plan (1) Osteoarthritis of right knee: Code(s): M17.11 - Unilateral primary osteoarthritis, right knee Category: Medical (2) Myalgia: Code(s): M79.10 - Myalgia, unspecified site Category: Medical Plan The patient was offered a cortisone injection in the right knee. The patient was explained the risks, benefits, and alternatives to receiving this injection. After receiving consent for the injection, the patient had the procedure done while in the office today. The patient tolerated the procedure well with no complications. Should the patient continue to have myalgias in the right lower extremity she will contact our office in the next step will be a referral to pain management for further evaluation and treatment. Follow-up will be PRN, or sooner if needed X-rays of the bilateral knees which were obtained while in the office today and were reviewed by me, Pam Theodore PA-C, revealed osteoarthritis. Orders: Orders XR knee LT 3V Today M25.569 - Pain in unspecified knee XR knee RT 3V Today M25.569 - Pain in unspecified knee Coding Level of Care Code Est Pt Level 3 (07050) Diagnoses Osteoarthritis of right knee M17.11 Myalgia M79.10
== END 2025-07-28 12:10 | disposition home or self-care (01) ==
LOC: HO.HOS 11:26
PROVIDERS: PCP Internal Medicine Geriatric Medicine; Visit Provider Physician Assistant
DX: M17.11 Unilateral primary osteoarthritis, right knee (principal); M79.10 Myalgia, unspecified site
CPT/HCPCS: 20610; 99213

== ENCOUNTER → 2025-07-28 11:28 | Outpatient (BNV) | payer OTHER, SELFPAY | PROVIDERS: Visit Provider Radiology Diagnostic Ultrasound | DX: M17.0 Bilateral primary osteoarthritis of knee (principal) | CPT/HCPCS: 73562 ==

== ENCOUNTER 2025-07-28 11:31 | Outpatient (REF) | payer OTHER, SELFPAY ==
--- NOTE | ~2025-07-28 | XR_ITS ---
EXAMINATION: X-ray right knee X-ray left knee CLINICAL INFORMATION: Pain COMPARISON: 07/19/2022 TECHNIQUE: AP bilateral knees one view. Right knee 2 views. Left knee 2 views. FINDINGS: Right knee: Severe medial compartment arthritis. Genu varus. Mild-moderate lateral and patellofemoral arthritis. No acute fracture or dislocation. Small-moderate effusion. Possible small posterior loose bodies. Left knee: Severe medial compartment arthritis. Genu varus. Mild-moderate lateral and patellofemoral arthritis. No acute fracture or dislocation. Small suprapatellar joint fluid. XR/XR knee LT 3V IMPRESSION: Right knee: Tricompartment arthritis. Interval progression from previous. Small-moderate effusion. Possible loose bodies. Left knee: Tricompartment osteoarthritis. Interval progression from previous. Electronically signed by: Dante Ramírez MD 07/28/2025 05:06 PM [facility]
--- NOTE | ~2025-07-28 | XR_ITS ---
EXAMINATION: X-ray right knee X-ray left knee CLINICAL INFORMATION: Pain COMPARISON: 07/19/2022 TECHNIQUE: AP bilateral knees one view. Right knee 2 views. Left knee 2 views. FINDINGS: Right knee: Severe medial compartment arthritis. Genu varus. Mild-moderate lateral and patellofemoral arthritis. No acute fracture or dislocation. Small-moderate effusion. Possible small posterior loose bodies. Left knee: Severe medial compartment arthritis. Genu varus. Mild-moderate lateral and patellofemoral arthritis. No acute fracture or dislocation. Small suprapatellar joint fluid. XR/XR knee RT 3V IMPRESSION: Right knee: Tricompartment arthritis. Interval progression from previous. Small-moderate effusion. Possible loose bodies. Left knee: Tricompartment osteoarthritis. Interval progression from previous. Electronically signed by: Dante Ramírez MD 07/28/2025 05:06 PM [facility]
== END 2025-07-28 11:32 | disposition home or self-care (01) ==
LOC: HO.HOSX 11:31
PROVIDERS: Visit Provider Physician Assistant
DX: M17.11 Unilateral primary osteoarthritis, right knee (principal); M79.10 Myalgia, unspecified site; M25.562 Pain in left knee
CPT/HCPCS: 20610; 73562; 99212; J0665; J1100; J2003

== ENCOUNTER 2025-08-18 10:41 | Outpatient (REF) | payer OTHER, SELFPAY ==
--- NOTE | ~2025-08-18 | MM_ITS ---
EXAMINATION(S): 1. MM DIAGNOSTIC DIGITAL BREAST TOMOSYNTHESIS, BILATERAL 2. TARGETED ULTRASOUND OF THE LEFT BREAST CLINICAL INFORMATION: Left breast mass in the lower outer quadrant. COMPARISON: Comparison made to multiple prior, most recent November 04, 2023, and most remote April 16, 2019. TECHNIQUE: Digital breast tomosynthesis is performed in both the mediolateral oblique and craniocaudal views along with computer-aided detection (CAD). Synthesized 2D images are generated from the tomosynthesis. FINDINGS: BREAST COMPOSITION: There are scattered areas of fibroglandular density. RIGHT BREAST: No significant masses, suspicious calcifications or other abnormalities are seen. LEFT BREAST: No significant masses, suspicious calcifications or other abnormalities are seen. In particular, no suspicious mammographic findings adjacent to the skin BB marker placed in the lateral breast at approximately 3 o'clock position posterior depth. Targeted ultrasound of the left breast was performed at the location of the palpable concern as indicated by the patient. The survey shows a hypoechoic structure with somewhat reniform shape at 3 o'clock position 20 cm from the nipple with maximum measurement of 0.7 cm in length and 0.3 cm of cortical thickness. Possible vascular pedicle demonstrated with color Doppler evaluation. MM/MM tomosynthesis diagnostic BI IMPRESSION: RIGHT BREAST: Negative, no mammographic evidence of malignancy. Normal interval follow-up is recommended in 12 months. LEFT BREAST: Palpable concern appears to correlate with a 0.7 cm-long benign-appearing lymph node at 2 o'clock position 20 cm from the nipple. Probably benign. A 6-month follow-up ultrasound is recommended. ASSESSMENT: BI-RADS: Category 3: Probably benign RECOMMENDATION: 6 Month F/U Results were provided to the patient at time of visit by the technologist. This patient's information was entered into a reminder system with a target due date for their next mammogram. Electronically signed by: Rafa Patel MD 08/18/2025 01:11 PM [facility]
== END 2025-08-18 10:42 | disposition home or self-care (01) ==
LOC: HO.MAMMO 10:41
PROVIDERS: PCP Internal Medicine Geriatric Medicine; Visit Provider Internal Medicine Geriatric Medicine
DX: N63.23 Unspecified lump in the left breast, lower outer quadrant (principal)
CPT/HCPCS: 76642; 77062; 77066

== ENCOUNTER → 2025-08-18 11:00 | Outpatient (BNV) | payer OTHER, SELFPAY | PROVIDERS: PCP Internal Medicine Geriatric Medicine; Visit Provider Radiology Body Imaging | DX: N63.23 Unspecified lump in the left breast, lower outer quadrant (principal) | CPT/HCPCS: 76642; 77062; 77066 ==